=== PATIENT | female | born 1945 | race Caucasian/White ===

== ENCOUNTER → 2016-05-13 | Outpatient (CLI) | payer OTHER ==
[~2016-05-13] MED LIST: ALBU6.7H INH; AMLO10TA4 PO; AMLO5TAB2 PO; BUDE10.2 INH; BUDE10.22 INH; CLON-365 PO; DOCU-30 PO; HYDR-3240 PO; HYDROCODONE PO; LEVO750T26 PO; LOPE2TAB28 PO; OMEP-110 PO; PARO20TA4 PO; PERP4TAB6 PO; PRED5TAB PO; QUET100T PO; SENN1TAB7 PO; TIOT18CA INH; TRAM50TA2 PO
== END | disposition home or self-care (01) ==
LOC: CFH 12:34
PROVIDERS: ATTEND Urology
DX: R10.84 Generalized abdominal pain (principal); M51.37 Other intervertebral disc degeneration, lumbosacral region; Z90.5 Acquired absence of kidney
CPT/HCPCS: 74176

== ENCOUNTER 2016-11-06 18:58 | Inpatient (IN) | payer OTHER ==
[~2016-11-06] VITALS: Ht 167.6 cm; Wt 82.6 kg
[~2016-11-06 18:58] MED LIST changes: +DOCU-131 PO; -DOCU-30 PO
[2016-11-06] MEDS ORDERED: SODIUM CHLORIDE FLUSH 10ML SYR IVF ONE (19:30)
[2016-11-06] MEDS ORDERED: methylPREDNISolone SOD SUCC 125 MG/2 ML IVP ONE (19:30)
[2016-11-06] MEDS ORDERED: SODIUM CHLORIDE 0.9% 1,000ML IVBOLUS ONE (19:30)
[2016-11-06] MEDS ORDERED: methylPREDNISolone SOD SUCC 125 MG/2 ML ONE (19:38)
[2016-11-06 19:43] LABS: HEMATOCRIT 40.8 % (34.6-47.8); HEMOGLOBIN 13.5 g/dL (11.7-16.4); WHITE BLOOD COUNT 9.5 x10^3/uL (3.4-10)
[2016-11-06 19:51] LABS: BLOOD UREA NITROGEN 29 mg/dL (7-18)
[2016-11-06 19:56] LABS: ASPARTATE AMINO TRANSFERASE 17 U/L (15-37)
[2016-11-06 19:58] LABS: IS PT STATUS REG ER OR PRE ER? YES
[2016-11-06] MEDS ORDERED: ALBUTEROL/IPRATROPIUM 2.5MG/0.5MG, 3 ML NPPB ONE (20:00)
[2016-11-06] MEDS ORDERED: CEFTRIAXONE PMX 1GM/50ML 50 ML IV ONE (20:30)
[2016-11-06] MEDS ORDERED: AZITHROMYCIN 500 MG in SODIUM CHLORIDE 0.9% 250 ML IV ONE (21:00)
[2016-11-06] MEDS ORDERED: DIPHENHYDRAMINE 25 MG CAPSULE PO PRN (23:00)
[2016-11-06] MEDS ORDERED: ONDANSETRON 2MG/ML, 2ML IVPush PRN (23:00)
[2016-11-06] MEDS ORDERED: ACETAMINOPHEN 325 MG TABLET PO PRN (23:00)
[2016-11-06] MEDS ORDERED: GUAIFENESIN/DM 200-20MG, 10ML UDC PO PRN (23:00)
[2016-11-06] MEDS: HEPARIN 5,000 UNITS/ML, 1ML SQ SCH (23:23)
[2016-11-07] MEDS: QUETIAPINE 100MG TABLET PO SCH ×3 (00:03→19:39)
[2016-11-07] MEDS: HYDROcodone/APAP 10/325 MG TABLET PO PRN ×3 (00:03→19:48)
[2016-11-07] MEDS: SODIUM CHLORIDE 0.9% 1,000 ML IV SCH ×2 (00:04→08:46)
[2016-11-07 00:07] VITALS: BP 122/71
[2016-11-07 01:00] VITALS: BP 132/76
[2016-11-07] MEDS ORDERED: ALBUTEROL/IPRATROPIUM 2.5MG/0.5MG, 3 ML NPPB PRN (02:00)
[2016-11-07 06:10] LABS: HEMATOCRIT 36.3 % (34.6-47.8); HEMOGLOBIN 12.1 g/dL (11.7-16.4); WHITE BLOOD COUNT 5.4 x10^3/uL (3.4-10)
[2016-11-07 06:26] LABS: BLOOD UREA NITROGEN 24 mg/dL (7-18)
[2016-11-07] MEDS ORDERED: SODIUM PHOSPHATE 20 MMOL in SODIUM CHLORIDE 0.9% 500 ML IV ONE (07:30)
[2016-11-07 08:20] VITALS: BP 120/73
[2016-11-07] MEDS: AMLODIPINE 5 MG TABLET PO SCH (08:45)
[2016-11-07] MEDS: PAROXETINE 20 MG TABLET PO SCH (08:45)
[2016-11-07] MEDS: HEPARIN 5,000 UNITS/ML, 1ML SQ SCH ×2 (08:46→19:39)
[2016-11-07] MEDS ORDERED: QUETIAPINE 100MG TABLET PO SCH (09:00)
[2016-11-07] MEDS: FLUTICASONE/VILANTEROL 200-25MCG/INH INH SCH (09:50)
[2016-11-07 13:15] VITALS: BP 129/72
[2016-11-07 18:45] VITALS: BP 122/73
[2016-11-07] MEDS: CEFTRIAXONE PMX 1GM/50ML 50 ML IV SCH (21:23)
[2016-11-08 01:45] VITALS: BP 109/64
[2016-11-08 06:07] LABS: BLOOD UREA NITROGEN 21 mg/dL (7-18)
[2016-11-08] MEDS: PAROXETINE 20 MG TABLET PO SCH (07:38)
[2016-11-08] MEDS: AMLODIPINE 5 MG TABLET PO SCH (07:38)
[2016-11-08] MEDS: HEPARIN 5,000 UNITS/ML, 1ML SQ SCH ×2 (07:39→20:44)
[2016-11-08] MEDS: FLUTICASONE/VILANTEROL 200-25MCG/INH INH SCH (07:39)
[2016-11-08] MEDS: QUETIAPINE 100MG TABLET PO SCH ×2 (07:39→20:44)
[2016-11-08 07:43] VITALS: BP 121/67
[2016-11-08] MEDS: HYDROcodone/APAP 10/325 MG TABLET PO PRN ×2 (07:44→13:27)
[2016-11-08 13:57] VITALS: BP 121/72
[2016-11-08] MEDS: PHENAZOPYRIDINE 100 MG TABLET PO PRN (17:55)
[2016-11-08] MEDS: GUAIFENESIN 200 MG TABLET PO PRN (17:55)
[2016-11-08 19:26] VITALS: BP 118/54
[2016-11-08] MEDS: CEFTRIAXONE PMX 1GM/50ML 50 ML IV SCH (20:44)
[2016-11-09 02:14] VITALS: BP 115/69
[2016-11-09 06:22] LABS: BLOOD UREA NITROGEN 22 mg/dL (7-18)
[2016-11-09 06:55] VITALS: BP 124/76
[2016-11-09] MEDS: HYDROcodone/APAP 10/325 MG TABLET PO PRN ×2 (08:28→20:57)
[2016-11-09] MEDS: FLUTICASONE/VILANTEROL 200-25MCG/INH INH SCH (08:29)
[2016-11-09] MEDS: AMLODIPINE 5 MG TABLET PO SCH (08:30)
[2016-11-09] MEDS: PAROXETINE 20 MG TABLET PO SCH (08:30)
[2016-11-09] MEDS: GUAIFENESIN 200 MG TABLET PO PRN (08:30)
[2016-11-09] MEDS: QUETIAPINE 100MG TABLET PO SCH ×2 (08:31→20:57)
[2016-11-09] MEDS: HEPARIN 5,000 UNITS/ML, 1ML SQ SCH ×2 (08:31→20:58)
[2016-11-09 14:07] VITALS: BP 125/78
[2016-11-09 18:38] VITALS: BP 108/70
[2016-11-09] MEDS: PHENAZOPYRIDINE 100 MG TABLET PO PRN (20:57)
[2016-11-09] MEDS: CEFTRIAXONE PMX 1GM/50ML 50 ML IV SCH (20:58)
[2016-11-10 01:15] VITALS: BP 113/70
[2016-11-10 08:00] VITALS: BP 163/79
[2016-11-10] MEDS: QUETIAPINE 100MG TABLET PO SCH (09:29)
[2016-11-10] MEDS: PAROXETINE 20 MG TABLET PO SCH (09:29)
[2016-11-10] MEDS: AMLODIPINE 5 MG TABLET PO SCH (09:29)
[2016-11-10] MEDS: FLUTICASONE/VILANTEROL 200-25MCG/INH INH SCH (09:29)
[2016-11-10] MEDS: HEPARIN 5,000 UNITS/ML, 1ML SQ SCH (09:30)
[2016-11-10] MEDS: HYDROcodone/APAP 10/325 MG TABLET PO PRN (12:13)
[2016-11-10 14:15] VITALS: BP 119/79
[2016-11-10] MEDS ORDERED: OMEP-110 PO (14:42)
[2016-11-10] MEDS ORDERED: HYDR-3307 PO (14:42)
[2016-11-10] MEDS ORDERED: FLUT1BLS INH (14:42)
[2016-11-10] MEDS ORDERED: CEFD300C37 PO (14:42)
== END 2016-11-10 16:55 | disposition home or self-care (01) | DRG 682 ==
LOC: ED 20:53 → EDIP 21:00 → 3NE 22:09
PROVIDERS: ADMIT Hospitalist; ATTEND Family Medicine
DX: N17.9 Acute kidney failure, unspecified (principal); J96.21 Acute and chronic respiratory failure with hypoxia; J18.9 Pneumonia, unspecified organism; J44.0 Chronic obstructive pulmonary disease with (acute) lower respiratory infection; J44.1 Chronic obstructive pulmonary disease with (acute) exacerbation; N12 Tubulo-interstitial nephritis, not specified as acute or chronic; I11.9 Hypertensive heart disease without heart failure; B96.20 Unspecified Escherichia coli [E. coli] as the cause of diseases classified elsewhere; F12.90 Cannabis use, unspecified, uncomplicated; F17.210 Nicotine dependence, cigarettes, uncomplicated; K21.9 Gastro-esophageal reflux disease without esophagitis; F41.9 Anxiety disorder, unspecified; F32.9 Major depressive disorder, single episode, unspecified; Z85.51 Personal history of malignant neoplasm of bladder; Z99.81 Dependence on supplemental oxygen; Z90.89 Acquired absence of other organs; Z90.710 Acquired absence of both cervix and uterus
CPT/HCPCS: 36415; 71010; 80048; 80053; 81001; 82040; 83735; 83880; 84100; 84484; 85025; 87040; 87077; 87086; 87186; 93005; 94640; 96361; 96374; J0456; J0696; J1644; J7620; J2930; J7030; J7040; J7050

== ENCOUNTER → 2016-11-22 | Outpatient (CLI) | payer OTHER ==
[~2016-11-22] MED LIST changes: +CEFD300C37 PO; +FLUT1BLS INH; +HYDR-3307 PO; +HYDR50CA PO
== END | disposition home or self-care (01) ==
LOC: CFH 08:43
PROVIDERS: ATTEND Physician Assistant
DX: K80.20 Calculus of gallbladder without cholecystitis without obstruction (principal); B18.2 Chronic viral hepatitis C
CPT/HCPCS: 76700

== ENCOUNTER 2016-11-27 18:55 | Inpatient (IN) | payer OTHER ==
[~2016-11-27] VITALS: Ht 157.5 cm; Wt 81.3 kg
[~2016-11-27 18:55] MED LIST changes: -HYDR50CA PO
[2016-11-27] MEDS ORDERED: MORPHINE SULFATE 4 MG/ML, 1ML ONE ×2 (19:26→20:18)
[2016-11-27] MEDS ORDERED: ONDANSETRON 2MG/ML, 2ML ONE (19:27)
[2016-11-27 19:30] LABS: HEMATOCRIT 39.7 % (34.6-47.8); HEMOGLOBIN 12.7 g/dL (11.7-16.4); WHITE BLOOD COUNT 8.3 x10^3/uL (3.4-10)
[2016-11-27] MEDS ORDERED: SODIUM CHLORIDE FLUSH 10ML SYR IVF ONE (19:30)
[2016-11-27] MEDS ORDERED: ONDANSETRON 2MG/ML, 2ML IVPush ONE (19:30)
[2016-11-27] MEDS ORDERED: SODIUM CHLORIDE 0.9% 1,000ML IVBOLUS ONE (19:30)
[2016-11-27] MEDS: MORPHINE SULFATE 4 MG/ML, 1ML IVPush PRN ×2 (19:37→20:25)
[2016-11-27 19:41] LABS: ASPARTATE AMINO TRANSFERASE 24 U/L (15-37); BLOOD UREA NITROGEN 15 mg/dL (7-18)
[2016-11-27 19:52] LABS: IS PT STATUS REG ER OR PRE ER? YES
[2016-11-27] MEDS ORDERED: OMNIPAQUE 350 MG/ML, 100ML BOTTLE ONE (21:04)
[2016-11-27] MEDS ORDERED: HYDR50CA PO (21:57)
[2016-11-27] MEDS ORDERED: FLUT1BLS INH (21:57)
[2016-11-27] MEDS ORDERED: CEFOTETAN PMX 1GM/50ML 50 ML IV ONE (22:30)
[2016-11-27] MEDS ORDERED: ONDANSETRON 2MG/ML, 2ML IVPush PRN (22:30)
[2016-11-27] MEDS ORDERED: ENOXAPARIN 40 MG/0.4 ML SQ SCH (22:30)
[2016-11-27] MEDS ORDERED: hydrALAzine 20 MG/ML, 1ML IVPush PRN (22:30)
[2016-11-27] MEDS ORDERED: ACETAMINOPHEN 325 MG TABLET PO PRN (22:30)
[2016-11-27] MEDS: CEFOTETAN PMX 1GM/50ML 50 ML IV SCH (22:30)
[2016-11-27] MEDS ORDERED: CEFOTETAN PMX 1GM/50ML 50 ML ONE (22:38)
[2016-11-27] MEDS ORDERED: ENOXAPARIN 30 MG/0.3 ML SQ SCH (23:46)
[2016-11-28] MEDS: morphine SULFATE 10 MG/ML, 1ML IVPush PRN ×3 (01:00→21:46)
[2016-11-28] MEDS: LACTATED RINGERS 1,000 ML IV SCH ×2 (01:00→14:20)
[2016-11-28 02:03] VITALS: BP 119/72
[2016-11-28] MEDS: HYDROcodone/APAP 10/325 MG TABLET PO PRN ×3 (02:18→20:07)
[2016-11-28] MEDS ORDERED: ALBUTEROL/IPRATROPIUM 2.5MG/0.5MG, 3 ML NPPB PRN ×2 (03:00→11:30)
[2016-11-28 05:30] LABS: HEMATOCRIT 33.8 % (34.6-47.8); HEMOGLOBIN 11.3 g/dL (11.7-16.4); WHITE BLOOD COUNT 6.3 x10^3/uL (3.4-10)
[2016-11-28 05:58] LABS: ASPARTATE AMINO TRANSFERASE 18 U/L (15-37); BLOOD UREA NITROGEN 12 mg/dL (7-18)
[2016-11-28 07:02] VITALS: BP 104/66
[2016-11-28] MEDS: FLUTICASONE/VILANTEROL 200-25MCG/INH INH SCH (09:00)
[2016-11-28] MEDS: AMLODIPINE 5 MG TABLET PO SCH (09:00)
[2016-11-28] MEDS: OMEPRAZOLE 20 MG CAPSULE.DR PO SCH (09:00)
[2016-11-28] MEDS: QUETIAPINE 100MG TABLET PO SCH ×2 (09:00→22:38)
[2016-11-28] MEDS: PAROXETINE 20 MG TABLET PO SCH (09:00)
[2016-11-28] MEDS ORDERED: BUPIVACAINE/PF 0.5% ONE (09:07)
[2016-11-28] MEDS ORDERED: EPINEPHRINE 1 MG/ML, 1ML ONE (09:07)
[2016-11-28] MEDS ORDERED: ONDANSETRON 2MG/ML, 2ML ONE (09:18)
[2016-11-28] MEDS ORDERED: DEXAMETHASONE 4 MG/ML, 1ML ONE (09:18)
[2016-11-28] MEDS ORDERED: PROPOFOL 10 MG/ML, 20ML ONE ×2 (09:18)
[2016-11-28] MEDS ORDERED: SUCCINYLCHOLINE 20 MG/ML, 10ML ONE (09:19)
[2016-11-28] MEDS ORDERED: FENTANYL PF 100 MCG/2ML ONE ×3 (09:19→11:04)
[2016-11-28] MEDS ORDERED: MIDAZOLAM 1 MG/ML, 2ML ONE (09:24)
[2016-11-28] MEDS ORDERED: LIDOCAINE GEL 2%, 5ML ONE (09:26)
[2016-11-28] MEDS ORDERED: ROCURONIUM 10 MG/ML ONE (10:01)
[2016-11-28] MEDS ORDERED: OXYcodone 5 MG/5 ML ORAL.SOL UDC ONE (11:05)
[2016-11-28] MEDS: FENTANYL PF 100 MCG/2ML IV PRN ×2 (11:08→11:35)
[2016-11-28] MEDS ORDERED: OXYcodone 5 MG/5 ML ORAL.SOL UDC PO PRN (11:30)
[2016-11-28] MEDS ORDERED: MIDAZOLAM 1 MG/ML, 2ML IV PRN (11:30)
[2016-11-28] MEDS ORDERED: ONDANSETRON 2MG/ML, 2ML IVPush PRN (11:30)
[2016-11-28] MEDS ORDERED: PROMETHAZINE 25 MG/ML, 1ML IV PRN (11:30)
[2016-11-28] MEDS ORDERED: HYDROmorphone 1 MG/ML, 1ML ONE (11:48)
[2016-11-28] MEDS: HYDROmorphone 1 MG/ML, 1ML IV PRN ×3 (11:50→12:15)
[2016-11-28] MEDS: CEFOTETAN PMX 1GM/50ML 50 ML IV SCH (13:50)
[2016-11-28 20:32] VITALS: BP 116/64
[2016-11-28] MEDS ORDERED: ENOXAPARIN 40 MG/0.4 ML SQ SCH (23:00)
[2016-11-29] MEDS: CEFOTETAN PMX 1GM/50ML 50 ML IV SCH ×2 (01:03→13:03)
[2016-11-29] MEDS: LACTATED RINGERS 1,000 ML IV SCH (01:04)
[2016-11-29 01:05] VITALS: BP 111/50
[2016-11-29] MEDS: morphine SULFATE 10 MG/ML, 1ML IVPush PRN ×3 (03:53→20:33)
[2016-11-29 04:32] LABS: HEMOGLOBIN 11.3 g/dL (11.7-16.4); WHITE BLOOD COUNT 9.8 x10^3/uL (3.4-10)
[2016-11-29 04:39] LABS: BLOOD UREA NITROGEN 13 mg/dL (7-18)
[2016-11-29] MEDS: HYDROcodone/APAP 10/325 MG TABLET PO PRN ×3 (06:08→19:22)
[2016-11-29 06:49] VITALS: BP 115/62
[2016-11-29] MEDS: QUETIAPINE 100MG TABLET PO SCH ×2 (08:11→19:23)
[2016-11-29] MEDS: PAROXETINE 20 MG TABLET PO SCH (08:11)
[2016-11-29] MEDS: OMEPRAZOLE 20 MG CAPSULE.DR PO SCH (08:11)
[2016-11-29] MEDS: AMLODIPINE 5 MG TABLET PO SCH (08:12)
[2016-11-29] MEDS: FLUTICASONE/VILANTEROL 200-25MCG/INH INH SCH (09:00)
[2016-11-29] MEDS ORDERED: MORPHINE SULFATE 4 MG/ML, 1ML ONE (10:07)
[2016-11-29 12:27] VITALS: BP 125/68
[2016-11-29 14:12] LABS: ASPARTATE AMINO TRANSFERASE 46 U/L (15-37)
[2016-11-29 18:44] VITALS: BP 131/65
[2016-11-29] MEDS: ENOXAPARIN 30 MG/0.3 ML SQ SCH (22:00)
[2016-11-30] MEDS: morphine SULFATE 10 MG/ML, 1ML IVPush PRN ×4 (00:27→20:08)
[2016-11-30 00:35] VITALS: BP 109/62
[2016-11-30] MEDS: HYDROcodone/APAP 10/325 MG TABLET PO PRN ×3 (02:43→17:37)
[2016-11-30 05:20] LABS: HEMATOCRIT 31.7 % (34.6-47.8); HEMOGLOBIN 10.4 g/dL (11.7-16.4); WHITE BLOOD COUNT 7.1 x10^3/uL (3.4-10)
[2016-11-30 05:21] LABS: BLOOD UREA NITROGEN 10 mg/dL (7-18)
[2016-11-30 05:24] LABS: ASPARTATE AMINO TRANSFERASE 40 U/L (15-37)
[2016-11-30 06:52] VITALS: BP 127/79
[2016-11-30] MEDS: PAROXETINE 20 MG TABLET PO SCH (08:33)
[2016-11-30] MEDS: OMEPRAZOLE 20 MG CAPSULE.DR PO SCH (08:33)
[2016-11-30] MEDS: AMLODIPINE 5 MG TABLET PO SCH (08:33)
[2016-11-30] MEDS: QUETIAPINE 100MG TABLET PO SCH ×2 (08:34→19:58)
[2016-11-30] MEDS ORDERED: PNEUMOCOCCAL 23 VACCINE IM-VACC ONE (10:00)
[2016-11-30] MEDS ORDERED: FLU VACC QS2017-18 (36MOS+) UP/PF 0.5 ML IM-VACC ONE (10:00)
[2016-11-30] MEDS: FLUTICASONE/VILANTEROL 200-25MCG/INH INH SCH (11:35)
[2016-11-30] MEDS: NICOTINE 7 MG/24 HR PATCH.TD24 TD SCH (11:36)
[2016-11-30 12:29] VITALS: BP 109/56
[2016-11-30] MEDS ORDERED: SODIUM CHLORIDE 0.9% 1,000 ML IV SCH (17:00)
[2016-11-30 19:00] VITALS: BP 146/77
[2016-11-30] MEDS: ENOXAPARIN 30 MG/0.3 ML SQ SCH (19:58)
[2016-12-01 02:41] VITALS: BP 132/76
[2016-12-01] MEDS: HYDROcodone/APAP 10/325 MG TABLET PO PRN ×2 (05:27→12:49)
[2016-12-01 05:42] LABS: BLOOD UREA NITROGEN 9 mg/dL (7-18)
[2016-12-01 06:41] VITALS: BP 116/71
[2016-12-01] MEDS: FLUTICASONE/VILANTEROL 200-25MCG/INH INH SCH (08:31)
[2016-12-01] MEDS: PAROXETINE 20 MG TABLET PO SCH (08:32)
[2016-12-01] MEDS: OMEPRAZOLE 20 MG CAPSULE.DR PO SCH (08:33)
[2016-12-01] MEDS: morphine SULFATE 10 MG/ML, 1ML IVPush PRN (08:34)
[2016-12-01] MEDS: QUETIAPINE 100MG TABLET PO SCH (08:34)
[2016-12-01] MEDS: AMLODIPINE 5 MG TABLET PO SCH (08:42)
[2016-12-01] MEDS: NICOTINE 7 MG/24 HR PATCH.TD24 TD SCH (10:22)
[2016-12-01 13:28] VITALS: BP 100/65
== END 2016-12-01 18:00 | disposition home or self-care (01) | DRG 418 ==
LOC: ED 20:01 → EDIP 22:11 → SUATTDRO 22:28 → 3NW 23:42
PROVIDERS: ADMIT Hospitalist; ATTEND Hospitalist
PROC: 0FT44ZZ Resection of Gallbladder, Percutaneous Endoscopic Approach (ICD-10-PCS; principal; 2016-11-28 10:30)
DX: K80.10 Calculus of gallbladder with chronic cholecystitis without obstruction (principal); N17.9 Acute kidney failure, unspecified; J44.9 Chronic obstructive pulmonary disease, unspecified; K74.60 Unspecified cirrhosis of liver; R16.0 Hepatomegaly, not elsewhere classified; N39.0 Urinary tract infection, site not specified; K59.00 Constipation, unspecified; Z85.51 Personal history of malignant neoplasm of bladder; Z90.49 Acquired absence of other specified parts of digestive tract; Z90.5 Acquired absence of kidney; I12.9 Hypertensive chronic kidney disease with stage 1 through stage 4 chronic kidney disease, or unspecified chronic kidney disease; N18.9 Chronic kidney disease, unspecified; B19.20 Unspecified viral hepatitis C without hepatic coma
CPT/HCPCS: 36415; 71020; 74000; 74177; 76700; 80048; 80053; 80076; 81003; 83690; 83735; 84100; 84484; 85025; 85610; 88304; 90686; 90732; 93005; 94640; 96361; 96374; 96375; 96376; J0171; J1100; J1170; J1650; J2250; J2405; J2704; J3010; J3490; J7620; Q9967; J0330; J2270; J7030; J7120; S0074

== ENCOUNTER 2017-01-30 10:37 | Emergency (ER) | payer OTHER ==
[~2017-01-30] VITALS: Ht 157.5 cm; Wt 74.0 kg
[~2017-01-30 10:37] MED LIST changes: +HYDR50CA PO
[2017-01-30] MEDS ORDERED: DOCUSATE 100 MG CAPSULE ONE (11:06)
[2017-01-30 11:10] VITALS: BP 151/86
[2017-01-30] MEDS ORDERED: DOCUSATE 50 MG/5 ML, 10ML UDC PO ONE (11:30)
== END 2017-01-30 11:53 | disposition home or self-care (01) ==
LOC: ED 11:40
DX: K59.00 Constipation, unspecified (principal); J44.9 Chronic obstructive pulmonary disease, unspecified; I10 Essential (primary) hypertension; K21.9 Gastro-esophageal reflux disease without esophagitis; Z85.51 Personal history of malignant neoplasm of bladder; Z90.49 Acquired absence of other specified parts of digestive tract
CPT/HCPCS: 99283

== ENCOUNTER 2017-01-31 15:18 | Inpatient (IN) | payer OTHER ==
[~2017-01-31] VITALS: Ht 157.5 cm; Wt 82.2 kg
[2017-01-31] MEDS ORDERED: ONDANSETRON 2MG/ML, 2ML ONE (15:53)
[2017-01-31] MEDS ORDERED: HYDROmorphone 2 MG/ML, 1ML ONE (15:53)
[2017-01-31] MEDS ORDERED: METHYLNALTREXONE 12 MG/0.6 ML SQ ONE (16:00)
[2017-01-31] MEDS ORDERED: SODIUM CHLORIDE FLUSH 10ML SYR IVF ONE (16:00)
[2017-01-31] MEDS ORDERED: ONDANSETRON 2MG/ML, 2ML IVPush ONE (16:00)
[2017-01-31] MEDS ORDERED: HYDROmorphone 2 MG/ML, 1ML IVPush ONE (16:00)
[2017-01-31] MEDS ORDERED: PINK LADY ENEMA 1,000 ML PR ONE (16:00)
[2017-01-31] MEDS ORDERED: SODIUM CHLORIDE 0.9% 1,000ML IVBOLUS ONE (16:00)
[2017-01-31 16:33] LABS: HEMATOCRIT 41.7 % (34.6-47.8); HEMOGLOBIN 13.8 g/dL (11.7-16.4); WHITE BLOOD COUNT 18.8 x10^3/uL (3.4-10)
[2017-01-31 16:42] LABS: ASPARTATE AMINO TRANSFERASE 20 U/L (15-37); BLOOD UREA NITROGEN 26 mg/dL (7-18)
[2017-01-31] MEDS ORDERED: OMNIPAQUE 350 MG/ML, 100ML BOTTLE ONE (18:35)
[2017-01-31] MEDS ORDERED: CEFTRIAXONE PMX 1GM/50ML 50 ML IV ONE (19:00)
[2017-01-31] MEDS ORDERED: METRONIDAZOLE PMX 500MG/100ML 100 ML IV ONE (19:00)
[2017-01-31] MEDS ORDERED: METRONIDAZOLE PMX 500MG/100ML 100 ML ONE (19:05)
[2017-01-31] MEDS ORDERED: CEFTRIAXONE PMX 1GM/50ML 50 ML ONE (19:05)
[2017-01-31] MEDS ORDERED: SODIUM CHLORIDE 0.9%, 500ML IVBOLUS ONE (19:30)
[2017-01-31] MEDS: SODIUM CHLORIDE 0.9% 1,000 ML IV SCH (20:18)
[2017-01-31] MEDS ORDERED: ONDANSETRON ODT 4 MG PO PRN (20:30)
[2017-01-31] MEDS ORDERED: SENNA/DOCUSATE TABLET PO SCH (20:30)
[2017-01-31] MEDS ORDERED: ACETAMINOPHEN 325 MG TABLET PO PRN (20:30)
[2017-01-31] MEDS ORDERED: POLYETHYLENE GLYCOL 17 GM PACKET PO SCH (20:30)
[2017-01-31] MEDS ORDERED: DOCUSATE 100 MG CAPSULE PO SCH (21:00)
[2017-01-31] MEDS ORDERED: PIPERACILLIN/TAZO/PMX 2.25GM 50 ML IV SCH (21:00)
[2017-01-31] MEDS ORDERED: PIPERACILLIN/TAZO 2.25 GM in SODIUM CHLORIDE 0.9% 50 ML IV SCH (21:00)
[2017-01-31] MEDS ORDERED: PHARMACY MAY ADJ FOR RENAL FX MC PRN (21:00)
[2017-01-31] MEDS: QUETIAPINE 100MG TABLET PO SCH (21:50)
[2017-01-31] MEDS: hydrOXyzine 50MG TABLET PO SCH (21:50)
[2017-01-31] MEDS: HEPARIN 5,000 UNITS/ML, 1ML SQ SCH (21:51)
[2017-01-31] MEDS: PIPERACILLIN/TAZO/PMX 2.25GM 50 ML IV SCH (23:37)
[2017-02-01 00:42] VITALS: BP 132/64
[2017-02-01] MEDS ORDERED: LORazepam 2 MG/ML, 1ML IVPush ONE (03:00)
[2017-02-01] MEDS ORDERED: MINERAL OIL LIGHT PO STA (04:30)
[2017-02-01] MEDS: HEPARIN 5,000 UNITS/ML, 1ML SQ SCH ×4 (04:30→21:29)
[2017-02-01] MEDS ORDERED: MORPHINE SULFATE 4 MG/ML, 1ML IVPush PRN (05:00)
[2017-02-01 05:35] LABS: HEMATOCRIT 35.2 % (34.6-47.8); HEMOGLOBIN 11.8 g/dL (11.7-16.4); WHITE BLOOD COUNT 14.7 x10^3/uL (3.4-10)
[2017-02-01 05:41] LABS: BLOOD UREA NITROGEN 16 mg/dL (7-18)
[2017-02-01 05:52] LABS: ASPARTATE AMINO TRANSFERASE 19 U/L (15-37)
[2017-02-01] MEDS: PIPERACILLIN/TAZO/PMX 2.25GM 50 ML IV SCH ×3 (06:09→17:57)
[2017-02-01 06:48] VITALS: BP 136/72
[2017-02-01] MEDS ORDERED: LORazepam 2 MG/ML, 1ML IVPush PRN (08:00)
[2017-02-01] MEDS ORDERED: HYDROmorphone 1 MG/ML, 1ML IM PRN (08:00)
[2017-02-01] MEDS: SODIUM CHLORIDE 0.9% 1,000 ML IV SCH (08:00)
[2017-02-01] MEDS ORDERED: POTASSIUM PHOS 4.4 MEQ/ML IV SCH (08:00)
[2017-02-01] MEDS ORDERED: HYDROmorphone 2 MG/ML, 1ML ONE ×3 (08:21→21:24)
[2017-02-01] MEDS: PAROXETINE 20 MG TABLET PO SCH (08:32)
[2017-02-01] MEDS: AMLODIPINE 5 MG TABLET PO SCH (08:32)
[2017-02-01] MEDS: hydrOXyzine 50MG TABLET PO SCH ×3 (08:32→21:21)
[2017-02-01] MEDS: QUETIAPINE 100MG TABLET PO SCH ×2 (08:32→21:22)
[2017-02-01] MEDS: HYDROmorphone 1 MG/ML, 1ML IVPush PRN ×3 (08:37→21:29)
[2017-02-01] MEDS: PINK LADY ENEMA 1,000 ML PR SCH (08:38)
[2017-02-01] MEDS: D5%-0.9% NACL 1,000 ML IV SCH ×2 (08:45→17:22)
[2017-02-01] MEDS: FLUTICASONE/VILANTEROL 200-25MCG/INH INH SCH (11:36)
[2017-02-01 13:20] VITALS: BP 137/79
[2017-02-01] MEDS: LORazepam 2 MG/ML, 1ML IVPush PRN ×2 (17:57→22:32)
[2017-02-01 18:45] VITALS: BP 135/72
[2017-02-01] MEDS: ONDANSETRON 2MG/ML, 2ML IVPush PRN (21:35)
[2017-02-02] MEDS: PIPERACILLIN/TAZO/PMX 2.25GM 50 ML IV SCH ×4 (00:45→17:44)
[2017-02-02] MEDS: LORazepam 2 MG/ML, 1ML IVPush PRN ×4 (02:33→17:53)
[2017-02-02] MEDS: D5%-0.9% NACL 1,000 ML IV SCH ×3 (02:39→17:32)
[2017-02-02] MEDS ORDERED: HYDROmorphone 2 MG/ML, 1ML ONE ×2 (03:35→20:43)
[2017-02-02] MEDS: ONDANSETRON 2MG/ML, 2ML IVPush PRN ×3 (03:39→20:58)
[2017-02-02] MEDS: HYDROmorphone 1 MG/ML, 1ML IVPush PRN ×4 (03:40→20:57)
[2017-02-02 03:45] VITALS: BP 145/71
[2017-02-02 05:56] LABS: HEMATOCRIT 33.3 % (34.6-47.8); HEMOGLOBIN 11.2 g/dL (11.7-16.4); WHITE BLOOD COUNT 7.9 x10^3/uL (3.4-10)
[2017-02-02] MEDS: HEPARIN 5,000 UNITS/ML, 1ML SQ SCH ×3 (06:08→20:56)
[2017-02-02 06:23] LABS: ASPARTATE AMINO TRANSFERASE 64 U/L (15-37); BLOOD UREA NITROGEN 10 mg/dL (7-18)
[2017-02-02 07:39] VITALS: BP 144/81
[2017-02-02] MEDS: hydrOXyzine 50MG TABLET PO SCH ×3 (07:50→20:57)
[2017-02-02] MEDS: PINK LADY ENEMA 1,000 ML PR SCH (07:51)
[2017-02-02] MEDS: QUETIAPINE 100MG TABLET PO SCH ×2 (07:51→20:56)
[2017-02-02] MEDS: PAROXETINE 20 MG TABLET PO SCH (07:51)
[2017-02-02] MEDS: AMLODIPINE 5 MG TABLET PO SCH (07:51)
[2017-02-02] MEDS: FLUTICASONE/VILANTEROL 200-25MCG/INH INH SCH (08:19)
[2017-02-02] MEDS ORDERED: POTASSIUM PHOS 4.4 MEQ/ML IV SCH (11:00)
[2017-02-02] MEDS ORDERED: POTASSIUM PHOSPHATE 44 MEQ in SODIUM CHLORIDE 0.9% 500 ML IV ONE (11:00)
[2017-02-02] MEDS: NEUTRA PHOS K 250 MG TABLET PO SCH ×3 (11:31→19:32)
[2017-02-02 15:02] VITALS: BP_SYST 110; BP_SYST 157; BP_DIAS 68; BP_DIAS 74
[2017-02-02] MEDS ORDERED: HYDROmorphone 1 MG/ML, 1ML IVPush ONE (15:30)
[2017-02-02 18:45] VITALS: BP 140/61
[2017-02-03] MEDS: PIPERACILLIN/TAZO/PMX 2.25GM 50 ML IV SCH ×5 (00:04→23:59)
[2017-02-03] MEDS: LORazepam 2 MG/ML, 1ML IVPush PRN ×4 (00:04→20:57)
[2017-02-03 00:23] VITALS: BP 145/74
[2017-02-03] MEDS ORDERED: HYDROmorphone 2 MG/ML, 1ML ONE (02:41)
[2017-02-03] MEDS: HYDROmorphone 1 MG/ML, 1ML IVPush PRN ×2 (02:44→12:09)
[2017-02-03] MEDS: ONDANSETRON 2MG/ML, 2ML IVPush PRN ×2 (03:32→12:09)
[2017-02-03] MEDS: HEPARIN 5,000 UNITS/ML, 1ML SQ SCH ×3 (05:14→20:57)
[2017-02-03 06:14] LABS: ASPARTATE AMINO TRANSFERASE 52 U/L (15-37); BLOOD UREA NITROGEN 11 mg/dL (7-18)
[2017-02-03 06:16] LABS: HEMATOCRIT 33.5 % (34.6-47.8); HEMOGLOBIN 11.1 g/dL (11.7-16.4); WHITE BLOOD COUNT 5.6 x10^3/uL (3.4-10)
[2017-02-03 07:50] VITALS: BP 147/74
[2017-02-03] MEDS: PINK LADY ENEMA 1,000 ML PR SCH (10:12)
[2017-02-03] MEDS: FLUTICASONE/VILANTEROL 200-25MCG/INH INH SCH (10:19)
[2017-02-03] MEDS ORDERED: PINK LADY ENEMA 1,000 ML PR ONE (10:30)
[2017-02-03] MEDS: AMLODIPINE 5 MG TABLET PO SCH (11:47)
[2017-02-03] MEDS: NEUTRA PHOS K 250 MG TABLET PO SCH ×3 (11:47→20:56)
[2017-02-03] MEDS: D5%-0.9% NACL 1,000 ML IV SCH ×2 (11:47→20:56)
[2017-02-03] MEDS: hydrOXyzine 50MG TABLET PO SCH ×3 (11:47→20:57)
[2017-02-03] MEDS: PAROXETINE 20 MG TABLET PO SCH (11:48)
[2017-02-03] MEDS: QUETIAPINE 100MG TABLET PO SCH ×2 (11:58→20:56)
[2017-02-03 13:30] VITALS: BP 126/43
[2017-02-03 18:45] VITALS: BP 146/80
[2017-02-03 19:19] VITALS: BP 158/73
[2017-02-03] MEDS: POLYETHYLENE GLYCOL 17 GM PACKET PO SCH (20:57)
[2017-02-04 02:06] VITALS: BP 147/73
[2017-02-04] MEDS: HEPARIN 5,000 UNITS/ML, 1ML SQ SCH ×3 (05:15→21:00)
[2017-02-04] MEDS: D5%-0.9% NACL 1,000 ML IV SCH (05:16)
[2017-02-04] MEDS: PIPERACILLIN/TAZO/PMX 2.25GM 50 ML IV SCH ×3 (05:16→18:04)
[2017-02-04 07:39] VITALS: BP 144/77
[2017-02-04] MEDS: FLUTICASONE/VILANTEROL 200-25MCG/INH INH SCH (08:40)
[2017-02-04] MEDS: AMLODIPINE 5 MG TABLET PO SCH (08:41)
[2017-02-04] MEDS: POLYETHYLENE GLYCOL 17 GM PACKET PO SCH ×2 (08:41→21:01)
[2017-02-04] MEDS: NEUTRA PHOS K 250 MG TABLET PO SCH ×3 (08:41→21:00)
[2017-02-04] MEDS: PAROXETINE 20 MG TABLET PO SCH (08:41)
[2017-02-04] MEDS: hydrOXyzine 50MG TABLET PO SCH ×3 (08:41→21:00)
[2017-02-04] MEDS: QUETIAPINE 100MG TABLET PO SCH ×2 (08:42→21:01)
[2017-02-04] MEDS: PINK LADY ENEMA 1,000 ML PR SCH (08:58)
[2017-02-04] MEDS ORDERED: HYDROmorphone 2 MG/ML, 1ML ONE ×2 (09:00→14:46)
[2017-02-04] MEDS: HYDROmorphone 1 MG/ML, 1ML IVPush PRN ×3 (09:05→21:04)
[2017-02-04 13:04] VITALS: BP 151/85
[2017-02-04 19:33] VITALS: BP 135/74
[2017-02-05] MEDS: PIPERACILLIN/TAZO/PMX 2.25GM 50 ML IV SCH ×3 (00:53→12:26)
[2017-02-05 02:14] VITALS: BP 147/81
[2017-02-05] MEDS ORDERED: HYDROmorphone 2 MG/ML, 1ML ONE ×2 (03:14→09:21)
[2017-02-05] MEDS: HYDROmorphone 1 MG/ML, 1ML IVPush PRN ×2 (03:20→09:24)
[2017-02-05 04:57] LABS: HEMATOCRIT 38.3 % (34.6-47.8); HEMOGLOBIN 12.7 g/dL (11.7-16.4); WHITE BLOOD COUNT 7.6 x10^3/uL (3.4-10)
[2017-02-05] MEDS: HEPARIN 5,000 UNITS/ML, 1ML SQ SCH ×3 (05:42→20:31)
[2017-02-05 07:41] VITALS: BP 147/71
[2017-02-05] MEDS: PAROXETINE 20 MG TABLET PO SCH (09:26)
[2017-02-05] MEDS: FLUTICASONE/VILANTEROL 200-25MCG/INH INH SCH (09:26)
[2017-02-05] MEDS: QUETIAPINE 100MG TABLET PO SCH ×2 (09:27→20:31)
[2017-02-05] MEDS: hydrOXyzine 50MG TABLET PO SCH ×3 (09:27→20:32)
[2017-02-05] MEDS: NEUTRA PHOS K 250 MG TABLET PO SCH ×3 (09:27→20:32)
[2017-02-05] MEDS: AMLODIPINE 5 MG TABLET PO SCH (09:27)
[2017-02-05] MEDS: POLYETHYLENE GLYCOL 17 GM PACKET PO SCH ×2 (09:27→20:31)
[2017-02-05] MEDS: ONDANSETRON 2MG/ML, 2ML IVPush PRN (09:46)
[2017-02-05 12:40] VITALS: BP 146/77
[2017-02-05] MEDS: LORazepam 2 MG/ML, 1ML IVPush PRN ×2 (13:52→17:53)
[2017-02-05] MEDS ORDERED: MAGNESIUM CITRATE 300ML ORAL SOL PO ONE (14:30)
[2017-02-05] MEDS: CEFTRIAXONE PMX 1GM/50ML 50 ML IV SCH (14:54)
[2017-02-05] MEDS: MORPHINE SULFATE 4 MG/ML, 1ML IVPush PRN ×2 (15:46→19:12)
[2017-02-05] MEDS: METRONIDAZOLE PMX 500MG/100ML 100 ML IV SCH (15:49)
[2017-02-05 19:30] VITALS: BP 159/84
[2017-02-05] MEDS: ZOLPIDEM 5MG TABLET PO PRN (20:32)
[2017-02-06] MEDS: METRONIDAZOLE PMX 500MG/100ML 100 ML IV SCH ×4 (00:02→23:47)
[2017-02-06 02:16] VITALS: BP 145/80
[2017-02-06] MEDS: MORPHINE SULFATE 4 MG/ML, 1ML IVPush PRN ×7 (02:28→21:28)
[2017-02-06] MEDS: HEPARIN 5,000 UNITS/ML, 1ML SQ SCH ×3 (05:00→21:28)
[2017-02-06] MEDS: ONDANSETRON 2MG/ML, 2ML IVPush PRN ×2 (05:14→19:41)
[2017-02-06 07:52] VITALS: BP 150/84
[2017-02-06] MEDS: POLYETHYLENE GLYCOL 17 GM PACKET PO SCH ×2 (08:22→21:27)
[2017-02-06] MEDS: PAROXETINE 20 MG TABLET PO SCH (08:25)
[2017-02-06] MEDS: NEUTRA PHOS K 250 MG TABLET PO SCH ×3 (08:25→21:28)
[2017-02-06] MEDS: AMLODIPINE 5 MG TABLET PO SCH (08:25)
[2017-02-06] MEDS: QUETIAPINE 100MG TABLET PO SCH ×2 (08:25→21:28)
[2017-02-06] MEDS: hydrOXyzine 50MG TABLET PO SCH ×3 (08:25→21:27)
[2017-02-06] MEDS: FLUTICASONE/VILANTEROL 200-25MCG/INH INH SCH (09:30)
[2017-02-06] MEDS: LORazepam 2 MG/ML, 1ML IVPush PRN ×2 (10:44→16:28)
[2017-02-06] MEDS: SIMETHICONE 125 MG CHEW TAB PO SCH ×3 (11:30→21:28)
[2017-02-06 12:58] VITALS: BP 150/67
[2017-02-06] MEDS ORDERED: morphine SULFATE 10 MG/ML, 1ML ONE (14:37)
[2017-02-06] MEDS: CEFTRIAXONE PMX 1GM/50ML 50 ML IV SCH (14:41)
[2017-02-06 19:32] VITALS: BP 135/81
[2017-02-06] MEDS: ZOLPIDEM 5MG TABLET PO PRN (23:47)
[2017-02-07 02:14] VITALS: BP 147/71
[2017-02-07] MEDS: LORazepam 2 MG/ML, 1ML IVPush PRN (02:52)
[2017-02-07] MEDS: HEPARIN 5,000 UNITS/ML, 1ML SQ SCH ×2 (05:20→13:00)
[2017-02-07] MEDS: MORPHINE SULFATE 4 MG/ML, 1ML IVPush PRN (05:21)
[2017-02-07 06:54] VITALS: BP 131/75
[2017-02-07] MEDS: SIMETHICONE 125 MG CHEW TAB PO SCH ×3 (07:00→15:52)
[2017-02-07] MEDS: FLUTICASONE/VILANTEROL 200-25MCG/INH INH SCH (09:00)
[2017-02-07] MEDS: POLYETHYLENE GLYCOL 17 GM PACKET PO SCH (09:01)
[2017-02-07] MEDS: METRONIDAZOLE PMX 500MG/100ML 100 ML IV SCH ×2 (09:10→15:50)
[2017-02-07] MEDS: AMLODIPINE 5 MG TABLET PO SCH (09:11)
[2017-02-07] MEDS: PAROXETINE 20 MG TABLET PO SCH (09:11)
[2017-02-07] MEDS: QUETIAPINE 100MG TABLET PO SCH (09:11)
[2017-02-07] MEDS: hydrOXyzine 50MG TABLET PO SCH ×2 (09:11→15:50)
[2017-02-07] MEDS: NEUTRA PHOS K 250 MG TABLET PO SCH ×2 (09:11→15:52)
[2017-02-07 12:24] VITALS: BP 165/80
[2017-02-07] MEDS: CEFTRIAXONE PMX 1GM/50ML 50 ML IV SCH (14:11)
== END 2017-02-07 18:26 | disposition home or self-care (01) | DRG 871 ==
LOC: ED 17:29 → EDIP 19:02 → 3NE 19:50
PROVIDERS: ADMIT Surgery; ATTEND Hospitalist
DX: A41.9 Sepsis, unspecified organism (principal); E43 Unspecified severe protein-calorie malnutrition; N17.9 Acute kidney failure, unspecified; I11.0 Hypertensive heart disease with heart failure; I50.32 Chronic diastolic (congestive) heart failure; Z99.81 Dependence on supplemental oxygen; J44.9 Chronic obstructive pulmonary disease, unspecified; E86.0 Dehydration; E44.0 Moderate protein-calorie malnutrition; R47.01 Aphasia; K52.9 Noninfective gastroenteritis and colitis, unspecified; R73.9 Hyperglycemia, unspecified; K74.60 Unspecified cirrhosis of liver; Z68.33 Body mass index [BMI] 33.0-33.9, adult; F17.210 Nicotine dependence, cigarettes, uncomplicated; F29 Unspecified psychosis not due to a substance or known physiological condition; F32.9 Major depressive disorder, single episode, unspecified; F41.9 Anxiety disorder, unspecified; G89.4 Chronic pain syndrome; I25.10 Atherosclerotic heart disease of native coronary artery without angina pectoris; K21.9 Gastro-esophageal reflux disease without esophagitis; K59.00 Constipation, unspecified; Z90.710 Acquired absence of both cervix and uterus; Z90.49 Acquired absence of other specified parts of digestive tract; Z86.718 Personal history of other venous thrombosis and embolism; Z85.528 Personal history of other malignant neoplasm of kidney; Z85.51 Personal history of malignant neoplasm of bladder
CPT/HCPCS: 36415; 71010; 74000; 74177; 74270; 80053; 81001; 83036; 83605; 83690; 83735; 84100; 84443; 85025; 85610; 87086; 87324; 93005; 96361; 96372; 96374; 96375; J0696; J1170; J1644; J2405; J2543; J7042; Q9967; J2060; J7030; J7040

== ENCOUNTER 2017-02-20 17:33 | Emergency (ER) | payer OTHER ==
[~2017-02-20] VITALS: Ht 157.5 cm; Wt 70.0 kg
[2017-02-20] MEDS ORDERED: SODIUM CHLORIDE 0.9% 1,000ML IVBOLUS ONE (18:30)
[2017-02-20] MEDS ORDERED: MORPHINE SULFATE 4 MG/ML, 1ML IVPush PRN (18:30)
[2017-02-20] MEDS ORDERED: SODIUM CHLORIDE FLUSH 10ML SYR IVF ONE (18:30)
[2017-02-20] MEDS ORDERED: ONDANSETRON 2MG/ML, 2ML IVPush ONE (18:30)
[2017-02-20] MEDS ORDERED: CEFTRIAXONE PMX 1GM/50ML 50 ML IVPB ONE (18:30)
[2017-02-20 19:30] LABS: BASOPHILS # (AUTO) 0.06 x10^3/uL (0-0.1); BASOPHILS % (AUTO) 1 % (0-1); EOSINOPHILS # (AUTO) 0.38 x10^3/uL (0-0.4); EOSINOPHILS % (AUTO) 3 % (1-7); LYMPHOCYTES # (AUTO) 2.32 x10^3/uL (1-3.4); LYMPHOCYTES % (AUTO) 18 % (22-44); MD NO; MEAN CORPUSCULAR HEMOGLOBIN 29.7 pg (27.0-34.8); MEAN CORPUSCULAR VOLUME 90.2 fL (80-100); MEAN PLATELET VOLUME 7.9 fL (7.4-10.4); MONOCYTES # (AUTO) 0.56 x10^3/uL (0.2-0.8); MONOCYTES % (AUTO) 4 % (2-9); NEUTROPHILS # (AUTO) 9.74 x10^3/uL (1.8-6.8); NEUTROPHILS % (AUTO) 75 % (42-75); PLATELET COUNT 289 x10^3/uL (130-400); RED BLOOD COUNT 4.62 x10^6/uL (3.82-5.3); RED CELL DISTRIBUTION WIDTH 13.6 % (9.6-15.2)
[2017-02-20 19:42] LABS: ALANINE AMINOTRANSFERASE 36 U/L (12-78); ALBUMIN 3.9 g/dL (3.4-5.0); ANION GAP 9 mmol/L (5-15); CHLORIDE 109 mmol/L (98-107); CREATININE 1.68 mg/dL (0.55-1.02)
[2017-02-20 19:45] LABS: ALKALINE PHOSPHATASE 111 U/L (45-117); BILIRUBIN,TOTAL 0.3 mg/dL (0.2-1.0); TOTAL PROTEIN 8.2 g/dL (6.4-8.2)
[2017-02-20] MEDS ORDERED: ALBUTEROL/IPRATROPIUM 2.5MG/0.5MG, 3 ML NPPB SCH (20:00)
[2017-02-20] MEDS ORDERED: ALBUTEROL/IPRATROPIUM 2.5MG/0.5MG, 3 ML ONE ×2 (20:16)
[2017-02-20 21:15] VITALS: BP 155/63
== END 2017-02-20 21:17 | disposition home or self-care (01) ==
LOC: ED 18:22
DX: J43.9 Emphysema, unspecified (principal); Z90.49 Acquired absence of other specified parts of digestive tract; Z90.710 Acquired absence of both cervix and uterus; I10 Essential (primary) hypertension; K21.9 Gastro-esophageal reflux disease without esophagitis; F17.210 Nicotine dependence, cigarettes, uncomplicated
CPT/HCPCS: 36415; 71045; 80053; 83605; 85025; 87040; 93005; 94640; 99285; J7620

== ENCOUNTER 2017-05-14 23:34 | Emergency (ER) | payer OTHER ==
[2017-05-14] MEDS ORDERED: ONDANSETRON 2MG/ML, 2ML ONE (23:58)
[2017-05-14] MEDS ORDERED: KETOROLAC 30 MG/1 ML ONE (23:58)
[2017-05-14] MEDS ORDERED: MORPHINE SULFATE 4 MG/ML, 1ML ONE (23:58)
[2017-05-15] LABS: BASOPHILS # (AUTO) 0.06 x10^3/uL (0-0.1); BASOPHILS % (AUTO) 1 % (0-1); EOSINOPHILS # (AUTO) 0.28 x10^3/uL (0-0.4); EOSINOPHILS % (AUTO) 4 % (1-7); LYMPHOCYTES # (AUTO) 3.13 x10^3/uL (1-3.4); LYMPHOCYTES % (AUTO) 39 % (22-44); MD NO; MEAN CORPUSCULAR HGB CONC 33.2 g/dL (32.4-35.8); MEAN CORPUSCULAR VOLUME 87.5 fL (80-100); MEAN PLATELET VOLUME 7.5 fL (7.4-10.4); MONOCYTES # (AUTO) 0.52 x10^3/uL (0.2-0.8); MONOCYTES % (AUTO) 6 % (2-9); NEUTROPHILS # (AUTO) 4.12 x10^3/uL (1.8-6.8); NEUTROPHILS % (AUTO) 51 % (42-75); PLATELET COUNT 250 x10^3/uL (130-400); RED BLOOD COUNT 4.25 x10^6/uL (3.82-5.3); RED CELL DISTRIBUTION WIDTH 14.4 % (9.6-15.2)
[2017-05-15] MEDS ORDERED: SODIUM CHLORIDE FLUSH 10ML SYR IVF ONE
[2017-05-15] MEDS ORDERED: SODIUM CHLORIDE 0.9% 1,000ML IVBOLUS ONE
[2017-05-15] MEDS ORDERED: MORPHINE SULFATE 4 MG/ML, 1ML IVPush PRN
[2017-05-15] MEDS ORDERED: KETOROLAC 30 MG/1 ML IVPush ONE
[2017-05-15] MEDS ORDERED: ONDANSETRON 2MG/ML, 2ML IVPush ONE
[2017-05-15 00:11] LABS: ALANINE AMINOTRANSFERASE 30 U/L (12-78); ALBUMIN 3.6 g/dL (3.4-5.0); ANION GAP 5 mmol/L (5-15); CALCIUM 8.8 mg/dL (8.5-10.1); CHLORIDE 110 mmol/L (98-107)
[2017-05-15 00:13] LABS: BILIRUBIN,TOTAL 0.2 mg/dL (0.2-1.0); CREATININE 1.47 mg/dL (0.55-1.02); TOTAL PROTEIN 7.7 g/dL (6.4-8.2)
[2017-05-15 00:15] LABS: CULTURE INDICATED? YES; MICROSCOPIC INDICATED
[2017-05-15 00:27] LABS: ALKALINE PHOSPHATASE 103 U/L (45-117)
[2017-05-15] MEDS ORDERED: OMNIPAQUE 350 MG/ML, 100ML BOTTLE ONE (01:02)
[2017-05-15 02:22] VITALS: BP 138/51
== END 2017-05-15 02:25 | disposition home or self-care (01) ==
LOC: ED 05-15 00:48
DX: R10.30 Lower abdominal pain, unspecified (principal); Z72.89 Other problems related to lifestyle; I10 Essential (primary) hypertension; K21.9 Gastro-esophageal reflux disease without esophagitis; E66.9 Obesity, unspecified; J43.9 Emphysema, unspecified; Z85.51 Personal history of malignant neoplasm of bladder; Z90.49 Acquired absence of other specified parts of digestive tract; Z90.710 Acquired absence of both cervix and uterus; F17.200 Nicotine dependence, unspecified, uncomplicated
CPT/HCPCS: 36415; 74177; 80053; 81001; 83690; 85025; 87086; 96361; 96374; 96375; 99285; J1885; J2405; J7030; Q9967

== ENCOUNTER 2017-06-26 10:56 | Inpatient (IN) | payer OTHER ==
[~2017-06-26] VITALS: Ht 157.5 cm; Wt 78.6 kg
[2017-06-26] MEDS ORDERED: SODIUM CHLORIDE FLUSH 10ML SYR IVF ONE (11:30)
[2017-06-26] MEDS ORDERED: ONDANSETRON ODT 4 MG PO ONE (11:30)
[2017-06-26] MEDS ORDERED: ONDANSETRON ODT 4 MG ONE (11:48)
[2017-06-26] MEDS ORDERED: MORPHINE SULFATE 4 MG/ML, 1ML ONE ×3 (11:48→17:48)
[2017-06-26 11:50] LABS: BASOPHILS # (AUTO) 0.08 x10^3/uL (0-0.1); BASOPHILS % (AUTO) 1 % (0-1); EOSINOPHILS # (AUTO) 0.22 x10^3/uL (0-0.4); EOSINOPHILS % (AUTO) 3 % (1-7); LYMPHOCYTES # (AUTO) 2.14 x10^3/uL (1-3.4); LYMPHOCYTES % (AUTO) 29 % (22-44); MD NO; MEAN CORPUSCULAR HEMOGLOBIN 27.8 pg (27.0-34.8); MEAN CORPUSCULAR HGB CONC 32.5 g/dL (32.4-35.8); MEAN CORPUSCULAR VOLUME 85.7 fL (80-100); MEAN PLATELET VOLUME 6.7 fL (7.4-10.4); MONOCYTES # (AUTO) 0.45 x10^3/uL (0.2-0.8); MONOCYTES % (AUTO) 6 % (2-9); NEUTROPHILS # (AUTO) 4.42 x10^3/uL (1.8-6.8); NEUTROPHILS % (AUTO) 61 % (42-75); PLATELET COUNT 321 x10^3/uL (130-400); RED BLOOD COUNT 4.62 x10^6/uL (3.82-5.3); RED CELL DISTRIBUTION WIDTH 13.9 % (9.6-15.2)
[2017-06-26] MEDS: MORPHINE SULFATE 4 MG/ML, 1ML IVPush PRN ×2 (11:52→13:45)
[2017-06-26 11:57] LABS: INTERNATIONAL NORMALIZED RATIO 1.01 (0.93-1.1); PROTHROMBIN TIME 10.5 Seconds (9.6-11.5)
[2017-06-26 12:01] LABS: ALANINE AMINOTRANSFERASE 38 U/L (12-78); ALBUMIN 3.6 g/dL (3.4-5.0); ANION GAP 5 mmol/L (5-15); CALCIUM 8.9 mg/dL (8.5-10.1); CHLORIDE 110 mmol/L (98-107); CREATININE 1.44 mg/dL (0.55-1.02)
[2017-06-26 12:03] LABS: ALKALINE PHOSPHATASE 105 U/L (45-117); BILIRUBIN,TOTAL 0.6 mg/dL (0.2-1.0); TOTAL PROTEIN 7.5 g/dL (6.4-8.2)
[2017-06-26] MEDS ORDERED: SODIUM CHLORIDE 0.9% 1,000ML IVBOLUS ONE (13:30)
[2017-06-26 14:46] LABS: CULTURE INDICATED? YES; MICROSCOPIC INDICATED
[2017-06-26] MEDS ORDERED: DIPH1TAB PO (15:30)
[2017-06-26] MEDS ORDERED: SODIUM CHLORIDE 0.9% 1,000 ML IV ONE (16:19)
[2017-06-26] MEDS ORDERED: SODIUM CHLORIDE FLUSH 10ML SYR IVF PRN (16:30)
[2017-06-26] MEDS ORDERED: ONDANSETRON 2MG/ML, 2ML IVPush PRN (17:00)
[2017-06-26] MEDS ORDERED: LABETALOL 5MG/ML, 20ML IVPush PRN (17:00)
[2017-06-26] MEDS: morphine SULFATE 10 MG/ML, 1ML IVPush PRN (17:51)
[2017-06-26 19:09] VITALS: BP 114/69
[2017-06-26 20:43] VITALS: BP 114/69
[2017-06-26] MEDS: D5%-0.45% NACL 1,000 ML IV SCH (21:21)
[2017-06-26] MEDS: HYDROXYZINE PAMOATE 50MG CAP PO SCH (21:22)
[2017-06-26] MEDS: ENOXAPARIN 40 MG/0.4 ML SQ SCH (21:22)
[2017-06-26] MEDS: FAMOTIDINE 20 MG/2 ML IVPush SCH (21:22)
[2017-06-26] MEDS: QUETIAPINE 100MG TABLET PO SCH (21:23)
[2017-06-26 21:30] VITALS: BP 144/75
[2017-06-27] MEDS: morphine SULFATE 10 MG/ML, 1ML IVPush PRN ×3 (01:33→16:13)
[2017-06-27 01:53] VITALS: BP 115/71
[2017-06-27] MEDS: D5%-0.45% NACL 1,000 ML IV SCH ×2 (05:15→16:14)
[2017-06-27 05:28] LABS: BASOPHILS # (AUTO) 0.04 x10^3/uL (0-0.1); BASOPHILS % (AUTO) 1 % (0-1); EOSINOPHILS # (AUTO) 0.13 x10^3/uL (0-0.4); EOSINOPHILS % (AUTO) 4 % (1-7); LYMPHOCYTES # (AUTO) 1.29 x10^3/uL (1-3.4); LYMPHOCYTES % (AUTO) 38 % (22-44); MD NO; MEAN CORPUSCULAR HEMOGLOBIN 28.2 pg (27.0-34.8); MEAN CORPUSCULAR HGB CONC 32.9 g/dL (32.4-35.8); MEAN CORPUSCULAR VOLUME 85.6 fL (80-100); MEAN PLATELET VOLUME 6.8 fL (7.4-10.4); MONOCYTES # (AUTO) 0.33 x10^3/uL (0.2-0.8); MONOCYTES % (AUTO) 10 % (2-9); NEUTROPHILS # (AUTO) 1.64 x10^3/uL (1.8-6.8); NEUTROPHILS % (AUTO) 48 % (42-75); PLATELET COUNT 226 x10^3/uL (130-400); RED BLOOD COUNT 4.06 x10^6/uL (3.82-5.3); RED CELL DISTRIBUTION WIDTH 13.7 % (9.6-15.2)
[2017-06-27 05:32] LABS: CHLORIDE 112 mmol/L (98-107)
[2017-06-27 05:48] LABS: ALANINE AMINOTRANSFERASE 117 U/L (12-78); ALBUMIN 2.7 g/dL (3.4-5.0); ALKALINE PHOSPHATASE 188 U/L (45-117); ANION GAP 5 mmol/L (5-15); CALCIUM 7.9 mg/dL (8.5-10.1); CREATININE 1.26 mg/dL (0.55-1.02); TOTAL PROTEIN 6.1 g/dL (6.4-8.2)
[2017-06-27 07:30] VITALS: BP 134/71
[2017-06-27] MEDS ORDERED: ALBUTEROL SULFATE 2.5 MG/3 ML ONE ×2 (07:48→20:53)
[2017-06-27] MEDS: SENNA/DOCUSATE TABLET PO SCH (09:00)
[2017-06-27] MEDS: FLUTICASONE/VILANTEROL 200-25MCG/INH INH SCH (09:00)
[2017-06-27] MEDS: ALBUTEROL SULFATE 2.5MG/0.5ML NPPB SCH ×2 (09:00→20:58)
[2017-06-27 09:09] VITALS: BP 115/75
[2017-06-27] MEDS: OMEPRAZOLE 20 MG CAPSULE.DR PO SCH (09:14)
[2017-06-27] MEDS: AMLODIPINE 5 MG TABLET PO SCH (09:14)
[2017-06-27] MEDS: QUETIAPINE 100MG TABLET PO SCH ×2 (09:14→20:38)
[2017-06-27] MEDS: PAROXETINE 20 MG TABLET PO SCH (09:14)
[2017-06-27] MEDS: HYDROXYZINE PAMOATE 50MG CAP PO SCH ×3 (09:15→20:37)
[2017-06-27] MEDS: FAMOTIDINE 20 MG/2 ML IVPush SCH ×2 (09:16→20:38)
[2017-06-27] MEDS: CEFTRIAXONE PMX 1GM/50ML 50 ML IV SCH (11:37)
[2017-06-27] MEDS: ONDANSETRON ODT 4 MG PO PRN (12:27)
[2017-06-27 16:14] VITALS: BP 106/67
[2017-06-27 19:36] VITALS: BP 111/66
[2017-06-27] MEDS: ENOXAPARIN 40 MG/0.4 ML SQ SCH (20:55)
[2017-06-28] MEDS: D5%-0.45% NACL 1,000 ML IV SCH ×3 (00:30→18:41)
[2017-06-28] MEDS: morphine SULFATE 10 MG/ML, 1ML IVPush PRN ×3 (01:21→16:13)
[2017-06-28 02:19] VITALS: BP 116/62
[2017-06-28] MEDS ORDERED: ALBUTEROL/IPRATROPIUM 2.5MG/0.5MG, 3 ML ONE (06:50)
[2017-06-28 07:28] VITALS: BP 119/72
[2017-06-28 07:59] LABS: BASOPHILS # (AUTO) 0.03 x10^3/uL (0-0.1); BASOPHILS % (AUTO) 1 % (0-1); EOSINOPHILS # (AUTO) 0.17 x10^3/uL (0-0.4); EOSINOPHILS % (AUTO) 3 % (1-7); LYMPHOCYTES # (AUTO) 1.49 x10^3/uL (1-3.4); LYMPHOCYTES % (AUTO) 30 % (22-44); MD NO; MEAN CORPUSCULAR HEMOGLOBIN 27.9 pg (27.0-34.8); MEAN CORPUSCULAR HGB CONC 32.7 g/dL (32.4-35.8); MEAN CORPUSCULAR VOLUME 85.4 fL (80-100); MEAN PLATELET VOLUME 6.5 fL (7.4-10.4); MONOCYTES # (AUTO) 0.36 x10^3/uL (0.2-0.8); MONOCYTES % (AUTO) 7 % (2-9); NEUTROPHILS % (AUTO) 59 % (42-75); PLATELET COUNT 235 x10^3/uL (130-400); RED BLOOD COUNT 4.04 x10^6/uL (3.82-5.3); RED CELL DISTRIBUTION WIDTH 13.5 % (9.6-15.2)
[2017-06-28 08:04] LABS: ALANINE AMINOTRANSFERASE 89 U/L (12-78); ALBUMIN 2.7 g/dL (3.4-5.0); ANION GAP 6 mmol/L (5-15); CALCIUM 7.6 mg/dL (8.5-10.1); CHLORIDE 111 mmol/L (98-107); CREATININE 1.18 mg/dL (0.55-1.02)
[2017-06-28 08:06] LABS: ALKALINE PHOSPHATASE 208 U/L (45-117); BILIRUBIN,TOTAL 0.5 mg/dL (0.2-1.0); TOTAL PROTEIN 6.1 g/dL (6.4-8.2)
[2017-06-28] MEDS ORDERED: FENTANYL PF 100 MCG/2ML ONE (08:47)
[2017-06-28] MEDS ORDERED: LIDOCAINE GEL 2%, 5ML ONE (08:47)
[2017-06-28] MEDS: HYDROXYZINE PAMOATE 50MG CAP PO SCH ×3 (09:00→21:20)
[2017-06-28] MEDS: OMEPRAZOLE 20 MG CAPSULE.DR PO SCH (09:00)
[2017-06-28] MEDS: FLUTICASONE/VILANTEROL 200-25MCG/INH INH SCH (09:00)
[2017-06-28] MEDS: ALBUTEROL SULFATE 2.5MG/0.5ML NPPB SCH ×2 (09:00→21:30)
[2017-06-28] MEDS: AMLODIPINE 5 MG TABLET PO SCH (09:00)
[2017-06-28] MEDS: PAROXETINE 20 MG TABLET PO SCH (09:00)
[2017-06-28] MEDS: SENNA/DOCUSATE TABLET PO SCH (09:00)
[2017-06-28] MEDS: QUETIAPINE 100MG TABLET PO SCH ×2 (09:00→21:20)
[2017-06-28] MEDS: FAMOTIDINE 20 MG/2 ML IVPush SCH ×2 (09:00→21:17)
[2017-06-28] MEDS ORDERED: SUCCINYLCHOLINE 20 MG/ML, 10ML ONE (09:01)
[2017-06-28] MEDS ORDERED: ONDANSETRON ODT 8 MG ONE (09:01)
[2017-06-28] MEDS ORDERED: PROPOFOL 10 MG/ML, 20ML ONE (09:01)
[2017-06-28] MEDS ORDERED: DEXAMETHASONE 4 MG/ML, 5ML ONE (09:01)
[2017-06-28] MEDS ORDERED: MIDAZOLAM 1 MG/ML, 2ML IV PRN (09:30)
[2017-06-28] MEDS ORDERED: ALBUTEROL/IPRATROPIUM 2.5MG/0.5MG, 3 ML NPPB PRN (09:30)
[2017-06-28] MEDS ORDERED: PROMETHAZINE 25 MG/ML, 1ML IV PRN (09:30)
[2017-06-28] MEDS ORDERED: hydrALAzine 20 MG/ML, 1ML IV PRN (09:30)
[2017-06-28] MEDS ORDERED: LABETALOL 5MG/ML, 20ML IV PRN (09:30)
[2017-06-28] MEDS ORDERED: MORPHINE SULFATE 4 MG/ML, 1ML IVPush PRN (09:30)
[2017-06-28] MEDS ORDERED: OXYcodone 5 MG/5 ML ORAL.SOL UDC PO PRN (09:30)
[2017-06-28] MEDS ORDERED: DIAZEPAM 5 MG/ML, 2ML IVPush PRN (09:30)
[2017-06-28] MEDS ORDERED: ALBUTEROL SULFATE 2.5 MG/3 ML NPPB PRN (09:30)
[2017-06-28] MEDS ORDERED: FENTANYL PF 100 MCG/2ML IV PRN (09:30)
[2017-06-28] MEDS ORDERED: MAGNESIUM SULFATE PMX 2GM/50ML 50 ML IV ONE (10:00)
[2017-06-28] MEDS: CEFTRIAXONE PMX 1GM/50ML 50 ML IV SCH (12:44)
[2017-06-28 15:42] VITALS: BP 107/50
[2017-06-28 19:09] VITALS: BP 103/65
[2017-06-28] MEDS: ENOXAPARIN 40 MG/0.4 ML SQ SCH (21:20)
[2017-06-28] MEDS ORDERED: ALBUTEROL SULFATE 2.5 MG/3 ML ONE (21:42)
[2017-06-29] MEDS: morphine SULFATE 10 MG/ML, 1ML IVPush PRN ×4 (00:54→23:15)
[2017-06-29] MEDS: D5%-0.45% NACL 1,000 ML IV SCH ×3 (03:15→18:03)
[2017-06-29 04:55] VITALS: BP 110/75
[2017-06-29 04:55] LABS: BASOPHILS # (AUTO) 0.02 x10^3/uL (0-0.1); BASOPHILS % (AUTO) 0 % (0-1); EOSINOPHILS % (AUTO) 0 % (1-7); LYMPHOCYTES # (AUTO) 0.96 x10^3/uL (1-3.4); LYMPHOCYTES % (AUTO) 16 % (22-44); MD NO; MEAN CORPUSCULAR VOLUME 84.9 fL (80-100); MONOCYTES # (AUTO) 0.33 x10^3/uL (0.2-0.8); MONOCYTES % (AUTO) 6 % (2-9); NEUTROPHILS # (AUTO) 4.63 x10^3/uL (1.8-6.8); NEUTROPHILS % (AUTO) 78 % (42-75); PLATELET COUNT 212 x10^3/uL (130-400); RED BLOOD COUNT 3.92 x10^6/uL (3.82-5.3); RED CELL DISTRIBUTION WIDTH 13.6 % (9.6-15.2)
[2017-06-29 05:04] LABS: CHLORIDE 111 mmol/L (98-107)
[2017-06-29 05:09] LABS: ALANINE AMINOTRANSFERASE 236 U/L (12-78); ALBUMIN 2.7 g/dL (3.4-5.0); ALKALINE PHOSPHATASE 336 U/L (45-117); ANION GAP 4 mmol/L (5-15); BILIRUBIN,TOTAL 1.1 mg/dL (0.2-1.0); CALCIUM 8.1 mg/dL (8.5-10.1); CREATININE 1.27 mg/dL (0.55-1.02); TOTAL PROTEIN 6.1 g/dL (6.4-8.2)
[2017-06-29 07:53] VITALS: BP 113/63
[2017-06-29] MEDS: ALBUTEROL SULFATE 2.5MG/0.5ML NPPB SCH (09:00)
[2017-06-29] MEDS: HYDROXYZINE PAMOATE 50MG CAP PO SCH ×3 (09:04→20:15)
[2017-06-29] MEDS: AMLODIPINE 5 MG TABLET PO SCH (09:04)
[2017-06-29] MEDS: SENNA/DOCUSATE TABLET PO SCH (09:05)
[2017-06-29] MEDS: OMEPRAZOLE 20 MG CAPSULE.DR PO SCH (09:05)
[2017-06-29] MEDS: QUETIAPINE 100MG TABLET PO SCH ×2 (09:05→20:13)
[2017-06-29] MEDS: PAROXETINE 20 MG TABLET PO SCH (09:05)
[2017-06-29] MEDS: FAMOTIDINE 20 MG/2 ML IVPush SCH ×2 (09:05→20:15)
[2017-06-29] MEDS ORDERED: ALBUTEROL SULFATE 2.5 MG/3 ML ONE (10:23)
[2017-06-29] MEDS: FLUTICASONE/VILANTEROL 200-25MCG/INH INH SCH (10:49)
[2017-06-29] MEDS: CEFTRIAXONE PMX 1GM/50ML 50 ML IV SCH (12:45)
[2017-06-29 13:07] VITALS: BP 105/61
[2017-06-29 19:37] VITALS: BP 95/60
[2017-06-29] MEDS: ALBUTEROL SULFATE 2.5 MG/3 ML NPPB SCH (19:50)
[2017-06-30 01:19] VITALS: BP 103/57
[2017-06-30] MEDS: D5%-0.45% NACL 1,000 ML IV SCH ×2 (02:45→14:34)
[2017-06-30 05:49] LABS: BASOPHILS # (AUTO) 0.05 x10^3/uL (0-0.1); BASOPHILS % (AUTO) 1 % (0-1); EOSINOPHILS # (AUTO) 0.19 x10^3/uL (0-0.4); EOSINOPHILS % (AUTO) 4 % (1-7); LYMPHOCYTES # (AUTO) 1.91 x10^3/uL (1-3.4); LYMPHOCYTES % (AUTO) 38 % (22-44); MD NO; MEAN CORPUSCULAR HEMOGLOBIN 28.5 pg (27.0-34.8); MEAN CORPUSCULAR HGB CONC 33.1 g/dL (32.4-35.8); MONOCYTES # (AUTO) 0.37 x10^3/uL (0.2-0.8); MONOCYTES % (AUTO) 8 % (2-9); NEUTROPHILS # (AUTO) 2.46 x10^3/uL (1.8-6.8); NEUTROPHILS % (AUTO) 50 % (42-75); PLATELET COUNT 223 x10^3/uL (130-400); RED BLOOD COUNT 3.71 x10^6/uL (3.82-5.3); RED CELL DISTRIBUTION WIDTH 14.3 % (9.6-15.2)
[2017-06-30 06:06] LABS: ALBUMIN 2.5 g/dL (3.4-5.0); ANION GAP 4 mmol/L (5-15); CALCIUM 8.2 mg/dL (8.5-10.1); CHLORIDE 116 mmol/L (98-107)
[2017-06-30 06:10] LABS: ALANINE AMINOTRANSFERASE 212 U/L (12-78); ALKALINE PHOSPHATASE 288 U/L (45-117); BILIRUBIN,TOTAL 0.9 mg/dL (0.2-1.0); CREATININE 1.16 mg/dL (0.55-1.02); TOTAL PROTEIN 5.9 g/dL (6.4-8.2)
[2017-06-30] MEDS: FLUTICASONE/VILANTEROL 200-25MCG/INH INH SCH (08:21)
[2017-06-30] MEDS: AMLODIPINE 5 MG TABLET PO SCH (08:21)
[2017-06-30] MEDS: PAROXETINE 20 MG TABLET PO SCH (08:21)
[2017-06-30] MEDS: QUETIAPINE 100MG TABLET PO SCH ×2 (08:21→20:51)
[2017-06-30] MEDS: SENNA/DOCUSATE TABLET PO SCH (08:21)
[2017-06-30] MEDS: FAMOTIDINE 20 MG/2 ML IVPush SCH (08:21)
[2017-06-30] MEDS: OMEPRAZOLE 20 MG CAPSULE.DR PO SCH (08:21)
[2017-06-30] MEDS: HYDROXYZINE PAMOATE 50MG CAP PO SCH ×3 (08:22→20:51)
[2017-06-30] MEDS: morphine SULFATE 10 MG/ML, 1ML IVPush PRN ×3 (08:31→20:58)
[2017-06-30] MEDS: ALBUTEROL SULFATE 2.5 MG/3 ML NPPB SCH ×2 (09:00→19:59)
[2017-06-30 09:05] VITALS: BP 126/69
[2017-06-30] MEDS ORDERED: OMNIPAQUE 350 MG/ML, 100ML BOTTLE ONE (14:16)
[2017-06-30] MEDS: CEFTRIAXONE PMX 1GM/50ML 50 ML IV SCH (14:34)
[2017-06-30 14:40] VITALS: BP 121/66
[2017-06-30 19:31] VITALS: BP 125/71
[2017-07-01 00:46] VITALS: BP 142/75
[2017-07-01 05:29] LABS: BASOPHILS # (AUTO) 0.07 x10^3/uL (0-0.1); BASOPHILS % (AUTO) 1 % (0-1); EOSINOPHILS # (AUTO) 0.24 x10^3/uL (0-0.4); EOSINOPHILS % (AUTO) 5 % (1-7); LYMPHOCYTES # (AUTO) 1.82 x10^3/uL (1-3.4); LYMPHOCYTES % (AUTO) 34 % (22-44); MD NO; MEAN CORPUSCULAR HEMOGLOBIN 28.4 pg (27.0-34.8); MEAN CORPUSCULAR HGB CONC 33.2 g/dL (32.4-35.8); MEAN CORPUSCULAR VOLUME 85.7 fL (80-100); MEAN PLATELET VOLUME 7.3 fL (7.4-10.4); MONOCYTES % (AUTO) 8 % (2-9); NEUTROPHILS # (AUTO) 2.77 x10^3/uL (1.8-6.8); NEUTROPHILS % (AUTO) 52 % (42-75); PLATELET COUNT 249 x10^3/uL (130-400); RED BLOOD COUNT 4.07 x10^6/uL (3.82-5.3); RED CELL DISTRIBUTION WIDTH 13.9 % (9.6-15.2)
[2017-07-01 05:43] LABS: ALBUMIN 2.7 g/dL (3.4-5.0); ANION GAP 5 mmol/L (5-15); CALCIUM 8.1 mg/dL (8.5-10.1); CHLORIDE 111 mmol/L (98-107)
[2017-07-01 05:45] LABS: CREATININE 1.17 mg/dL (0.55-1.02)
[2017-07-01 07:19] VITALS: BP 125/75
[2017-07-01] MEDS: OMEPRAZOLE 20 MG CAPSULE.DR PO SCH (08:32)
[2017-07-01] MEDS: AMLODIPINE 5 MG TABLET PO SCH (08:32)
[2017-07-01] MEDS: HYDROXYZINE PAMOATE 50MG CAP PO SCH ×3 (08:32→20:24)
[2017-07-01] MEDS: QUETIAPINE 100MG TABLET PO SCH ×2 (08:32→20:25)
[2017-07-01] MEDS: PAROXETINE 20 MG TABLET PO SCH (08:32)
[2017-07-01] MEDS: SENNA/DOCUSATE TABLET PO SCH (08:32)
[2017-07-01] MEDS: FLUTICASONE/VILANTEROL 200-25MCG/INH INH SCH (08:40)
[2017-07-01] MEDS: morphine SULFATE 10 MG/ML, 1ML IVPush PRN (10:02)
[2017-07-01] MEDS: ALBUTEROL SULFATE 2.5 MG/3 ML NPPB SCH ×2 (10:05→19:46)
[2017-07-01] MEDS: CEFTRIAXONE PMX 1GM/50ML 50 ML IV SCH (13:17)
[2017-07-01 13:59] VITALS: BP 104/68
[2017-07-01] MEDS: ACETAMINOPHEN 325 MG TABLET PO PRN ×2 (14:32→20:25)
[2017-07-01] MEDS ORDERED: KETOROLAC 30 MG/1 ML IV ONE (15:00)
[2017-07-01 15:56] LABS: ALBUMIN 2.9 g/dL (3.4-5.0); ANION GAP 5 mmol/L (5-15); CALCIUM 8.5 mg/dL (8.5-10.1); CHLORIDE 108 mmol/L (98-107)
[2017-07-01 16:00] LABS: ALANINE AMINOTRANSFERASE 151 U/L (12-78); ALKALINE PHOSPHATASE 301 U/L (45-117); BILIRUBIN,TOTAL 0.6 mg/dL (0.2-1.0); CREATININE 1.24 mg/dL (0.55-1.02); TOTAL PROTEIN 6.6 g/dL (6.4-8.2)
[2017-07-01 19:40] VITALS: BP 126/71
[2017-07-01] MEDS: BISACODYL 10 MG SUPP PR SCH (20:25)
[2017-07-02 00:46] VITALS: BP 99/64
[2017-07-02 05:44] LABS: BASOPHILS % (AUTO) 1 % (0-1); EOSINOPHILS # (AUTO) 0.28 x10^3/uL (0-0.4); EOSINOPHILS % (AUTO) 3 % (1-7); LYMPHOCYTES # (AUTO) 1.82 x10^3/uL (1-3.4); LYMPHOCYTES % (AUTO) 21 % (22-44); MD NO; MEAN CORPUSCULAR HEMOGLOBIN 28.8 pg (27.0-34.8); MEAN CORPUSCULAR HGB CONC 33.8 g/dL (32.4-35.8); MEAN CORPUSCULAR VOLUME 85.3 fL (80-100); MEAN PLATELET VOLUME 6.9 fL (7.4-10.4); MONOCYTES # (AUTO) 0.52 x10^3/uL (0.2-0.8); MONOCYTES % (AUTO) 6 % (2-9); NEUTROPHILS % (AUTO) 69 % (42-75); PLATELET COUNT 256 x10^3/uL (130-400); RED BLOOD COUNT 4.34 x10^6/uL (3.82-5.3); RED CELL DISTRIBUTION WIDTH 13.9 % (9.6-15.2)
[2017-07-02 05:51] LABS: ALANINE AMINOTRANSFERASE 123 U/L (12-78); ALBUMIN 2.8 g/dL (3.4-5.0); ANION GAP 6 mmol/L (5-15); CALCIUM 8.8 mg/dL (8.5-10.1); CHLORIDE 110 mmol/L (98-107); CREATININE 1.32 mg/dL (0.55-1.02)
[2017-07-02 05:53] LABS: ALKALINE PHOSPHATASE 273 U/L (45-117); BILIRUBIN,TOTAL 0.5 mg/dL (0.2-1.0); TOTAL PROTEIN 6.7 g/dL (6.4-8.2)
[2017-07-02] MEDS: ALBUTEROL SULFATE 2.5 MG/3 ML NPPB SCH ×2 (06:47→19:29)
[2017-07-02 07:26] VITALS: BP 130/75
[2017-07-02] MEDS: SENNA/DOCUSATE TABLET PO SCH (09:00)
[2017-07-02] MEDS: BISACODYL 10 MG SUPP PR SCH ×2 (09:24→21:00)
[2017-07-02] MEDS: OMEPRAZOLE 20 MG CAPSULE.DR PO SCH (09:30)
[2017-07-02] MEDS: FLUTICASONE/VILANTEROL 200-25MCG/INH INH SCH (09:30)
[2017-07-02] MEDS: PAROXETINE 20 MG TABLET PO SCH (09:31)
[2017-07-02] MEDS: QUETIAPINE 100MG TABLET PO SCH ×2 (09:31→19:45)
[2017-07-02] MEDS: HYDROXYZINE PAMOATE 50MG CAP PO SCH ×3 (09:31→19:45)
[2017-07-02] MEDS: AMLODIPINE 5 MG TABLET PO SCH (09:31)
[2017-07-02] MEDS: CEFTRIAXONE PMX 1GM/50ML 50 ML IV SCH (12:14)
[2017-07-02 12:58] VITALS: BP 104/67
[2017-07-02 19:12] VITALS: BP 101/53
[2017-07-03 01:53] VITALS: BP 124/74
[2017-07-03 05:18] LABS: BASOPHILS # (AUTO) 0.12 x10^3/uL (0-0.1); BASOPHILS % (AUTO) 2 % (0-1); EOSINOPHILS # (AUTO) 0.28 x10^3/uL (0-0.4); EOSINOPHILS % (AUTO) 4 % (1-7); LYMPHOCYTES # (AUTO) 2.35 x10^3/uL (1-3.4); LYMPHOCYTES % (AUTO) 34 % (22-44); MD NO; MEAN CORPUSCULAR HEMOGLOBIN 27.8 pg (27.0-34.8); MEAN CORPUSCULAR HGB CONC 32.5 g/dL (32.4-35.8); MEAN CORPUSCULAR VOLUME 85.4 fL (80-100); MEAN PLATELET VOLUME 7.1 fL (7.4-10.4); MONOCYTES # (AUTO) 0.49 x10^3/uL (0.2-0.8); MONOCYTES % (AUTO) 7 % (2-9); NEUTROPHILS # (AUTO) 3.73 x10^3/uL (1.8-6.8); NEUTROPHILS % (AUTO) 54 % (42-75); PLATELET COUNT 270 x10^3/uL (130-400); RED BLOOD COUNT 4.27 x10^6/uL (3.82-5.3)
[2017-07-03 05:31] LABS: ALBUMIN 2.8 g/dL (3.4-5.0); ANION GAP 7 mmol/L (5-15); CALCIUM 8.7 mg/dL (8.5-10.1); CHLORIDE 110 mmol/L (98-107)
[2017-07-03 05:34] LABS: CREATININE 1.48 mg/dL (0.55-1.02)
[2017-07-03] MEDS: ALBUTEROL SULFATE 2.5 MG/3 ML NPPB SCH ×2 (06:15→21:00)
[2017-07-03] MEDS ORDERED: LACTATED RINGERS 1,000 ML IVBOLUS ONE (07:00)
[2017-07-03 07:20] LABS: ALBUMIN 2.8 g/dL (3.4-5.0)
[2017-07-03 07:32] LABS: BILIRUBIN, DIRECT 0.1 mg/dL (0.1-0.2)
[2017-07-03 07:34] LABS: BILIRUBIN,INDIRECT 0.2 mg/dL (0.0-2.0); BILIRUBIN,TOTAL 0.3 mg/dL (0.2-1.0); TOTAL PROTEIN 6.6 g/dL (6.4-8.2)
[2017-07-03 08:01] VITALS: BP 115/66
[2017-07-03] MEDS: BISACODYL 10 MG SUPP PR SCH ×2 (09:00→20:48)
[2017-07-03] MEDS: OMEPRAZOLE 20 MG CAPSULE.DR PO SCH (09:37)
[2017-07-03] MEDS: CEFDINIR 300 MG CAPSULE PO SCH ×2 (09:37→20:48)
[2017-07-03] MEDS: PAROXETINE 20 MG TABLET PO SCH (09:37)
[2017-07-03] MEDS: AMLODIPINE 5 MG TABLET PO SCH (09:37)
[2017-07-03] MEDS: POLYETHYLENE GLYCOL 17 GM PACKET PO SCH (09:37)
[2017-07-03] MEDS: SENNA/DOCUSATE TABLET PO SCH (09:37)
[2017-07-03] MEDS: ACETAMINOPHEN 325 MG TABLET PO PRN (09:38)
[2017-07-03] MEDS: HYDROXYZINE PAMOATE 50MG CAP PO SCH ×3 (09:38→20:49)
[2017-07-03] MEDS: QUETIAPINE 100MG TABLET PO SCH ×2 (09:38→20:49)
[2017-07-03] MEDS: FLUTICASONE/VILANTEROL 200-25MCG/INH INH SCH (10:05)
[2017-07-03] MEDS ORDERED: CEFD300C37 PO (10:48)
[2017-07-03 11:31] LABS: ANION GAP 7 mmol/L (5-15); CALCIUM 8.1 mg/dL (8.5-10.1); CHLORIDE 109 mmol/L (98-107)
[2017-07-03 11:32] LABS: CREATININE 1.39 mg/dL (0.55-1.02)
[2017-07-03] MEDS ORDERED: LACTATED RINGERS 500 ML IVBOLUS ONE (14:30)
[2017-07-03 17:26] VITALS: BP 119/72
[2017-07-03 18:59] VITALS: BP 124/75
[2017-07-04 02:49] VITALS: BP 109/69
[2017-07-04 06:13] VITALS: BP 120/62
[2017-07-04] MEDS: ALBUTEROL SULFATE 2.5 MG/3 ML NPPB SCH ×2 (06:47→19:36)
[2017-07-04] MEDS: BISACODYL 10 MG SUPP PR SCH ×2 (09:00→19:22)
[2017-07-04] MEDS: SENNA/DOCUSATE TABLET PO SCH (09:00)
[2017-07-04] MEDS: POLYETHYLENE GLYCOL 17 GM PACKET PO SCH (09:00)
[2017-07-04] MEDS: ONDANSETRON ODT 4 MG PO PRN (10:03)
[2017-07-04] MEDS: FLUTICASONE/VILANTEROL 200-25MCG/INH INH SCH (10:03)
[2017-07-04] MEDS: CEFDINIR 300 MG CAPSULE PO SCH ×2 (10:04→19:32)
[2017-07-04] MEDS: QUETIAPINE 100MG TABLET PO SCH ×2 (10:04→19:32)
[2017-07-04] MEDS: AMLODIPINE 5 MG TABLET PO SCH (10:04)
[2017-07-04] MEDS: ACETAMINOPHEN 325 MG TABLET PO PRN (10:05)
[2017-07-04] MEDS: HYDROXYZINE PAMOATE 50MG CAP PO SCH ×3 (10:05→19:32)
[2017-07-04] MEDS: PAROXETINE 20 MG TABLET PO SCH (10:06)
[2017-07-04] MEDS: OMEPRAZOLE 20 MG CAPSULE.DR PO SCH (10:07)
[2017-07-04 14:56] VITALS: BP 109/67
[2017-07-04 19:07] VITALS: BP 113/65
[2017-07-05 00:46] VITALS: BP 108/55
[2017-07-05 07:08] VITALS: BP 146/76
[2017-07-05] MEDS: POLYETHYLENE GLYCOL 17 GM PACKET PO SCH (09:00)
[2017-07-05] MEDS: ALBUTEROL SULFATE 2.5 MG/3 ML NPPB SCH ×2 (09:00→09:12)
[2017-07-05] MEDS: BISACODYL 10 MG SUPP PR SCH (09:00)
[2017-07-05] MEDS: SENNA/DOCUSATE TABLET PO SCH (09:00)
[2017-07-05] MEDS: PAROXETINE 20 MG TABLET PO SCH (09:01)
[2017-07-05] MEDS: CEFDINIR 300 MG CAPSULE PO SCH (09:01)
[2017-07-05] MEDS: OMEPRAZOLE 20 MG CAPSULE.DR PO SCH (09:01)
[2017-07-05] MEDS: ACETAMINOPHEN 325 MG TABLET PO PRN (09:01)
[2017-07-05] MEDS: AMLODIPINE 5 MG TABLET PO SCH (09:01)
[2017-07-05] MEDS: QUETIAPINE 100MG TABLET PO SCH (09:01)
[2017-07-05] MEDS: FLUTICASONE/VILANTEROL 200-25MCG/INH INH SCH (09:02)
[2017-07-05] MEDS: HYDROXYZINE PAMOATE 50MG CAP PO SCH (09:04)
== END 2017-07-05 11:36 | disposition home or self-care (01) | DRG 438 ==
LOC: ED 12:02 → EDIP 16:19 → 3NE 17:56
PROVIDERS: ADMIT Hospitalist; ATTEND Hospitalist
PROC: 0T9B70Z Drainage of Bladder with Drainage Device, Via Natural or Artificial Opening (ICD-10-PCS; 2017-06-26)
PROC: 0F798ZZ Dilation of Common Bile Duct, Via Natural or Artificial Opening Endoscopic (ICD-10-PCS; 2017-06-28)
PROC: BF131ZZ Fluoroscopy of Gallbladder and Bile Ducts using Low Osmolar Contrast (ICD-10-PCS; 2017-06-28)
PROC: 0FC98ZZ Extirpation of Matter from Common Bile Duct, Via Natural or Artificial Opening Endoscopic (ICD-10-PCS; principal; 2017-06-28 09:00)
DX: K85.10 Biliary acute pancreatitis without necrosis or infection (principal); N17.0 Acute kidney failure with tubular necrosis; N39.0 Urinary tract infection, site not specified; K80.50 Calculus of bile duct without cholangitis or cholecystitis without obstruction; F41.9 Anxiety disorder, unspecified; I10 Essential (primary) hypertension; K27.9 Peptic ulcer, site unspecified, unspecified as acute or chronic, without hemorrhage or perforation; R74.0 Nonspecific elevation of levels of transaminase and lactic acid dehydrogenase [LDH]; B18.2 Chronic viral hepatitis C; F17.210 Nicotine dependence, cigarettes, uncomplicated; F31.9 Bipolar disorder, unspecified; G89.29 Other chronic pain; I25.2 Old myocardial infarction; K21.9 Gastro-esophageal reflux disease without esophagitis; K52.9 Noninfective gastroenteritis and colitis, unspecified; K59.00 Constipation, unspecified; Z82.5 Family history of asthma and other chronic lower respiratory diseases; Z85.51 Personal history of malignant neoplasm of bladder; Z85.528 Personal history of other malignant neoplasm of kidney; Z86.73 Personal history of transient ischemic attack (TIA), and cerebral infarction without residual deficits; Z87.11 Personal history of peptic ulcer disease; Z90.49 Acquired absence of other specified parts of digestive tract; Z90.5 Acquired absence of kidney; Z90.710 Acquired absence of both cervix and uterus; Z99.81 Dependence on supplemental oxygen; J43.9 Emphysema, unspecified
CPT/HCPCS: 36415; 74018; 74177; 74181; 74328; 80048; 80053; 80076; 81001; 82040; 82150; 83690; 83735; 84100; 84439; 84443; 85025; 85610; 87040; 87077; 87086; 87186; 93005; 94640; 96361; 96374; 96376; 99285; J0696; J1100; J1650; J1885; J2704; J3010; J7120; J7611; J7613; Q0162; Q9967; C1769; J0330; J2270; J3475; J7030; S0028

== ENCOUNTER 2017-12-09 19:49 | Emergency (ER) | payer OTHER ==
[~2017-12-09] VITALS: Ht 157.5 cm; Wt 72.3 kg
[~2017-12-09 19:49] MED LIST changes: -AMLO5TAB2 PO; +AMLO5TAB7 PO; -CLON-365 PO; +CLON1TAB11 PO; +DIPH1TAB PO; -SENN1TAB7 PO; +SENN1TAB8 PO
[2017-12-09] MEDS ORDERED: MORPHINE SULFATE 4 MG/ML, 1ML IVPush PRN (20:00)
[2017-12-09] MEDS ORDERED: SODIUM CHLORIDE FLUSH 10ML SYR IVF ONE (20:00)
[2017-12-09] MEDS ORDERED: ONDANSETRON 2MG/ML, 2ML IVPush ONE (20:00)
[2017-12-09 20:24] LABS: BASOPHILS % (AUTO) 1 % (0-1); EOSINOPHILS % (AUTO) 4 % (1-7); LYMPHOCYTES # (AUTO) 3.18 x10^3/uL (1-3.4); LYMPHOCYTES % (AUTO) 26 % (22-44); MD NO; MEAN CORPUSCULAR HEMOGLOBIN 30.5 pg (27.0-34.8); MEAN CORPUSCULAR VOLUME 89.8 fL (80-100); MEAN PLATELET VOLUME 7.5 fL (7.4-10.4); MONOCYTES # (AUTO) 0.74 x10^3/uL (0.2-0.8); MONOCYTES % (AUTO) 6 % (2-9); NEUTROPHILS # (AUTO) 7.82 x10^3/uL (1.8-6.8); NEUTROPHILS % (AUTO) 63 % (42-75); PLATELET COUNT 326 x10^3/uL (130-400)
[2017-12-09 20:32] LABS: ALBUMIN 3.7 g/dL (3.4-5.0); ANION GAP 9 mmol/L (5-15); CALCIUM 8.9 mg/dL (8.5-10.1); CHLORIDE 107 mmol/L (98-107)
[2017-12-09 20:36] LABS: ALANINE AMINOTRANSFERASE 23 U/L (12-78); ALKALINE PHOSPHATASE 113 U/L (45-117); BILIRUBIN,TOTAL 0.3 mg/dL (0.2-1.0); CREATININE 1.41 mg/dL (0.55-1.02); TOTAL PROTEIN 8.5 g/dL (6.4-8.2)
[2017-12-09 20:40] LABS: MICROSCOPIC AUTO
[2017-12-09 20:46] LABS: CULTURE INDICATED? NO
[2017-12-09 23:00] VITALS: BP 149/72
== END 2017-12-09 23:01 | disposition home or self-care (01) ==
LOC: ED 21:32
DX: R10.31 Right lower quadrant pain (principal); R10.32 Left lower quadrant pain; K21.9 Gastro-esophageal reflux disease without esophagitis; F32.9 Major depressive disorder, single episode, unspecified; I10 Essential (primary) hypertension; J44.9 Chronic obstructive pulmonary disease, unspecified; Z90.49 Acquired absence of other specified parts of digestive tract; Z90.710 Acquired absence of both cervix and uterus; Z85.51 Personal history of malignant neoplasm of bladder
CPT/HCPCS: 36415; 71045; 74177; 80053; 81001; 83690; 85025; 99285

== ENCOUNTER 2020-09-04 18:31 | Inpatient (IN) | payer OTHER ==
[~2020-09-04] VITALS: Ht 157.5 cm; Wt 80.7 kg
[~2020-09-04 18:31] MED LIST changes: -ALBU6.7H INH; +ALBU6.7H8 INH; +AMLO-150 PO; -AMLO5TAB7 PO; +FLUO40CA2 PO; +HYDR-2214 PO; -HYDR-3240 PO; +HYDR-3248 PO; -HYDR-3307 PO; +SENN-177 PO; -SENN1TAB8 PO
[2020-09-04 19:27] LABS: BASOPHILS % (AUTO) 2 % (0-1); EOSINOPHILS % (AUTO) 2 % (1-7); LYMPHOCYTES % (AUTO) 21 % (22-44); MEAN CORPUSCULAR HEMOGLOBIN 28.2 pg (27.0-34.8); MEAN CORPUSCULAR HGB CONC 32.4 g/dL (32.4-35.8); MEAN PLATELET VOLUME 7.7 fL (7.4-10.4); MONOCYTES % (AUTO) 7 % (2-9); NEUTROPHILS % (AUTO) 69 % (42-75); PLATELET COUNT 335 x10^3/uL (130-400); RED BLOOD COUNT 5.15 x10^6/uL (3.82-5.3); RED CELL DISTRIBUTION WIDTH 16.3 % (9.6-15.2)
[2020-09-04 19:35] LABS: ALBUMIN 3.5 g/dL (3.4-5.0); ANION GAP 5 mmol/L (5-15); CALCIUM 9.2 mg/dL (8.5-10.1); CHLORIDE 108 mmol/L (98-107)
[2020-09-04 19:39] LABS: ALANINE AMINOTRANSFERASE 80 U/L (12-78); ALKALINE PHOSPHATASE 219 U/L (45-117); BILIRUBIN,TOTAL 0.6 mg/dL (0.2-1.0); CREATININE 1.49 mg/dL (0.55-1.02); TOTAL PROTEIN 8.5 g/dL (6.4-8.2)
--- NOTE | 2020-09-04 20:07 | NUR ---
PT BIB POV. PT STATES UNABLE TO EAT, ABD PAIN, AND PAINFUL URINATION X MONTHS. 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 PT ALSO STATES SHE WAS HOSPITALIZED AT [facility] FOR MONTHS AND WAS RELEASED APPROX 8 WEEKS AGO. PT REPORTS PAIN KEEPS GETTING WORSE AND SHE CAN FEEL LUMPS IN HER ABD. PT RESTING IN [facility], MONITORING IN PLACE, NADN AT THIS TIME, URINE SPECIMEN SENT TO LAB, [facility].
[2020-09-04 20:19] LABS: MICROSCOPIC INDICATED
[2020-09-04] MEDS ORDERED: SODIUM CHLORIDE 0.9%, 500ML IVBOLUS ONE (21:00)
[2020-09-04] MEDS ORDERED: CEFTRIAXONE 1,000 MG in DEXTROSE 5% 50 ML IVPB ONE ×2 (21:00→23:30)
[2020-09-04 22:22] VITALS: BP 133/76
[2020-09-04] MEDS ORDERED: LOPE2CAP PO (23:05)
[2020-09-04] MEDS ORDERED: CLON1TAB11 PO (23:06)
[2020-09-04] MEDS ORDERED: AMLO-210 PO (23:08)
[2020-09-04] MEDS ORDERED: QUET200T79 PO (23:11)
[2020-09-04] MEDS ORDERED: SUCR1TAB PO (23:12)
[2020-09-04] MEDS ORDERED: ACETAMINOPHEN 325 MG TABLET PO PRN (23:30)
[2020-09-04] MEDS ORDERED: TEMAZEPAM 15 MG CAPSULE PO PRN (23:30)
[2020-09-04] MEDS ORDERED: METHOCARBAMOL 500 MG TABLET PO PRN (23:30)
[2020-09-04] MEDS ORDERED: DOCUSATE 100 MG CAPSULE PO PRN (23:30)
[2020-09-04] MEDS ORDERED: GUAIFENESIN/DM 200-20MG, 10ML UDC PO PRN (23:30)
[2020-09-04] MEDS ORDERED: hydrALAzine 20 MG/ML, 1ML IVPush PRN (23:30)
[2020-09-04] MEDS ORDERED: ONDANSETRON 2MG/ML, 2ML IVPush PRN (23:30)
[2020-09-04] MEDS ORDERED: LOPERAMIDE 2 MG CAPSULE PO PRN (23:30)
[2020-09-04] MEDS: SODIUM CHLORIDE 0.9% 1,000 ML IV SCH (23:40)
[2020-09-04] MEDS: HEPARIN 5,000 UNITS/ML, 1ML SQ SCH (23:40)
[2020-09-04] MEDS: SUCRALFATE 1 GM TABLET PO SCH (23:40)
[2020-09-04] MEDS: QUETIAPINE 200 MG TABLET PO SCH (23:40)
[2020-09-05 02:11] VITALS: BP 107/64
[2020-09-05] MEDS: SUCRALFATE 1 GM TABLET PO SCH (05:43)
[2020-09-05 05:44] LABS: BASOPHILS % (AUTO) 2 % (0-1); EOSINOPHILS % (AUTO) 3 % (1-7); LYMPHOCYTES % (AUTO) 36 % (22-44); MEAN CORPUSCULAR HEMOGLOBIN 28.3 pg (27.0-34.8); MEAN CORPUSCULAR HGB CONC 32.6 g/dL (32.4-35.8); MEAN PLATELET VOLUME 7.7 fL (7.4-10.4); MONOCYTES % (AUTO) 8 % (2-9); NEUTROPHILS % (AUTO) 51 % (42-75); PLATELET COUNT 235 x10^3/uL (130-400); RED CELL DISTRIBUTION WIDTH 16.4 % (9.6-15.2)
[2020-09-05 05:59] LABS: CALCIUM 8.4 mg/dL (8.5-10.1)
[2020-09-05 06:06] LABS: ANION GAP 7 mmol/L (5-15); CHLORIDE 111 mmol/L (98-107)
[2020-09-05 06:51] VITALS: BP 108/60
[2020-09-05] MEDS: SODIUM CHLORIDE 0.9% 1,000 ML IV SCH ×2 (09:07→16:10)
[2020-09-05] MEDS: HEPARIN 5,000 UNITS/ML, 1ML SQ SCH ×3 (09:08→23:05)
[2020-09-05 13:34] VITALS: BP 109/71
[2020-09-05 19:16] VITALS: BP 100/64
[2020-09-05] MEDS: QUETIAPINE 200 MG TABLET PO SCH (20:33)
[2020-09-05] MEDS ORDERED: CEFTRIAXONE 2 GM in DEXTROSE 5% 50 ML IVPB SCH (21:00)
[2020-09-06 00:42] VITALS: BP 133/77
[2020-09-06] MEDS: SODIUM CHLORIDE 0.9% 1,000 ML IV SCH (02:36)
[2020-09-06] MEDS ORDERED: CIPR500T87 PO ×2 (07:29)
[2020-09-06] MEDS: HEPARIN 5,000 UNITS/ML, 1ML SQ SCH ×3 (08:10→22:20)
[2020-09-06 09:41] VITALS: BP 132/76
[2020-09-06 13:10] VITALS: BP 134/78
[2020-09-06] MEDS: OXYcodone IR 5MG TABLET PO PRN ×2 (14:31→20:38)
[2020-09-06 19:36] VITALS: BP 118/73
[2020-09-06] MEDS: QUETIAPINE 200 MG TABLET PO SCH (20:38)
[2020-09-06] MEDS: CIPROFLOXACIN 500 MG TABLET PO SCH (20:38)
[2020-09-07 01:03] VITALS: BP 130/63
[2020-09-07] MEDS: CIPROFLOXACIN 500 MG TABLET PO SCH ×2 (08:17→20:32)
[2020-09-07] MEDS: OXYcodone IR 5MG TABLET PO PRN ×2 (08:17→19:17)
[2020-09-07] MEDS: HEPARIN 5,000 UNITS/ML, 1ML SQ SCH ×2 (08:17→16:38)
[2020-09-07 08:22] VITALS: BP 134/78
[2020-09-07 14:31] VITALS: BP 122/76
[2020-09-07 20:29] VITALS: BP 125/68
[2020-09-07] MEDS: QUETIAPINE 200 MG TABLET PO SCH (20:32)
[2020-09-08 00:03] VITALS: BP 91/58
[2020-09-08] MEDS: HEPARIN 5,000 UNITS/ML, 1ML SQ SCH ×4 (00:07→23:54)
[2020-09-08 06:46] VITALS: BP 138/80
[2020-09-08] MEDS: CIPROFLOXACIN 500 MG TABLET PO SCH ×2 (08:06→21:26)
[2020-09-08 12:39] VITALS: BP 148/81
[2020-09-08] MEDS: OXYcodone IR 5MG TABLET PO PRN (16:31)
[2020-09-08 21:07] VITALS: BP 134/77
[2020-09-08] MEDS: QUETIAPINE 200 MG TABLET PO SCH (21:26)
[2020-09-09 01:28] VITALS: BP 108/72
[2020-09-09 07:06] VITALS: BP 136/88
[2020-09-09] MEDS: CIPROFLOXACIN 500 MG TABLET PO SCH ×2 (08:08→20:57)
[2020-09-09] MEDS: HEPARIN 5,000 UNITS/ML, 1ML SQ SCH ×2 (08:08→16:00)
[2020-09-09] MEDS: HYDROXYZINE PAMOATE 50MG CAP PO SCH ×3 (12:22→21:03)
[2020-09-09] MEDS: OXYcodone IR 5MG TABLET PO PRN ×2 (12:23→21:03)
[2020-09-09 12:44] VITALS: BP 114/73
[2020-09-09 20:37] VITALS: BP 126/77
[2020-09-09] MEDS: QUETIAPINE 200 MG TABLET PO SCH (20:57)
[2020-09-10] MEDS: HEPARIN 5,000 UNITS/ML, 1ML SQ SCH ×3 (00:04→15:52)
[2020-09-10 00:07] VITALS: BP 126/63
[2020-09-10 07:24] VITALS: BP 120/77
[2020-09-10] MEDS: HYDROXYZINE PAMOATE 50MG CAP PO SCH ×3 (07:56→21:04)
[2020-09-10] MEDS: CIPROFLOXACIN 500 MG TABLET PO SCH ×2 (07:57→21:04)
[2020-09-10] MEDS: FLUOXETINE HCL 20 MG CAPSULE PO SCH (07:57)
[2020-09-10] MEDS: OXYcodone IR 5MG TABLET PO PRN (09:22)
[2020-09-10 13:03] VITALS: BP 106/70
[2020-09-10 19:11] VITALS: BP 116/71
[2020-09-10] MEDS: QUETIAPINE 200 MG TABLET PO SCH (21:04)
[2020-09-11 01:33] VITALS: BP 96/56
[2020-09-11 08:26] VITALS: BP 121/76
[2020-09-11] MEDS: HEPARIN 5,000 UNITS/ML, 1ML SQ SCH ×3 (09:20→18:41)
[2020-09-11] MEDS: CIPROFLOXACIN 500 MG TABLET PO SCH ×2 (09:21→21:00)
[2020-09-11] MEDS: FLUOXETINE HCL 20 MG CAPSULE PO SCH (09:23)
[2020-09-11] MEDS: HYDROXYZINE PAMOATE 50MG CAP PO SCH ×3 (09:24→21:00)
[2020-09-11] MEDS ORDERED: AMLO10TA4 PO (14:07)
[2020-09-11] MEDS ORDERED: HYDR50CA PO (14:07)
[2020-09-11] MEDS ORDERED: FLUT1BLS INH (14:07)
[2020-09-11] MEDS ORDERED: FLUO40CA2 PO (14:07)
[2020-09-11] MEDS ORDERED: OMEP-110 PO (14:07)
[2020-09-11] MEDS ORDERED: QUET200T79 PO (14:07)
[2020-09-11 14:13] VITALS: BP 107/69
[2020-09-11 19:46] VITALS: BP 128/76
[2020-09-11] MEDS: QUETIAPINE 200 MG TABLET PO SCH (21:02)
[2020-09-12] MEDS: HEPARIN 5,000 UNITS/ML, 1ML SQ SCH ×3 (00:17→16:09)
[2020-09-12 00:54] VITALS: BP 110/68
[2020-09-12 07:33] VITALS: BP 111/59
[2020-09-12] MEDS: FLUOXETINE HCL 20 MG CAPSULE PO SCH (08:10)
[2020-09-12] MEDS: HYDROXYZINE PAMOATE 50MG CAP PO SCH ×3 (08:11→21:05)
[2020-09-12] MEDS: CIPROFLOXACIN 500 MG TABLET PO SCH (08:11)
[2020-09-12 14:19] VITALS: BP 143/79
[2020-09-12 20:35] VITALS: BP 120/75
[2020-09-12] MEDS: QUETIAPINE 200 MG TABLET PO SCH (21:05)
[2020-09-13 00:29] VITALS: BP 114/68
[2020-09-13] MEDS: FLUOXETINE HCL 20 MG CAPSULE PO SCH (08:05)
[2020-09-13] MEDS: HYDROXYZINE PAMOATE 50MG CAP PO SCH ×3 (08:05→20:58)
[2020-09-13] MEDS: HEPARIN 5,000 UNITS/ML, 1ML SQ SCH ×3 (08:05→16:07)
[2020-09-13 08:57] VITALS: BP 128/70
[2020-09-13 15:53] VITALS: BP 134/76
[2020-09-13] MEDS: QUETIAPINE 200 MG TABLET PO SCH (20:59)
[2020-09-13 21:10] VITALS: BP 127/77
[2020-09-13] MEDS: CALCIUM CARBONATE 500 MG TAB.CHEW PO PRN (23:14)
[2020-09-14 02:09] VITALS: BP 86/52
[2020-09-14 02:38] VITALS: BP 101/62
[2020-09-14 06:53] VITALS: BP 134/72
[2020-09-14] MEDS: FLUOXETINE HCL 20 MG CAPSULE PO SCH (08:21)
[2020-09-14] MEDS: HEPARIN 5,000 UNITS/ML, 1ML SQ SCH ×4 (08:21→23:35)
[2020-09-14] MEDS: HYDROXYZINE PAMOATE 50MG CAP PO SCH ×3 (08:21→20:14)
[2020-09-14 12:58] VITALS: BP 124/61
[2020-09-14 19:02] VITALS: BP 123/52
[2020-09-14] MEDS: OXYcodone IR 5MG TABLET PO PRN (20:14)
[2020-09-14] MEDS: QUETIAPINE 200 MG TABLET PO SCH (20:14)
[2020-09-14] MEDS: CALCIUM CARBONATE 500 MG TAB.CHEW PO PRN (21:07)
[2020-09-14 23:36] VITALS: BP 112/74
[2020-09-15 07:25] VITALS: BP 111/72
[2020-09-15] MEDS: HYDROXYZINE PAMOATE 50MG CAP PO SCH ×3 (09:25→20:27)
[2020-09-15] MEDS: FLUOXETINE HCL 20 MG CAPSULE PO SCH (09:25)
[2020-09-15] MEDS: HEPARIN 5,000 UNITS/ML, 1ML SQ SCH ×3 (09:26→23:21)
[2020-09-15 13:37] VITALS: BP 103/63
[2020-09-15 18:32] VITALS: BP 108/47
[2020-09-15] MEDS: QUETIAPINE 200 MG TABLET PO SCH (20:27)
[2020-09-15] MEDS: CALCIUM CARBONATE 500 MG TAB.CHEW PO PRN (20:27)
[2020-09-15] MEDS: OXYcodone IR 5MG TABLET PO PRN (20:27)
[2020-09-16 00:42] VITALS: BP 122/74
[2020-09-16 07:24] VITALS: BP 126/76
[2020-09-16] MEDS: HEPARIN 5,000 UNITS/ML, 1ML SQ SCH ×3 (08:15→23:59)
[2020-09-16] MEDS: FLUOXETINE HCL 20 MG CAPSULE PO SCH (08:16)
[2020-09-16] MEDS: HYDROXYZINE PAMOATE 50MG CAP PO SCH ×3 (08:16→21:15)
[2020-09-16 13:15] VITALS: BP 111/55
[2020-09-16 19:17] VITALS: BP 136/74
[2020-09-16] MEDS: QUETIAPINE 200 MG TABLET PO SCH (21:15)
[2020-09-17 00:58] VITALS: BP 117/73
[2020-09-17 05:40] LABS: ANION GAP 4 mmol/L (5-15); CALCIUM 9.1 mg/dL (8.5-10.1); CHLORIDE 110 mmol/L (98-107); CREATININE 1.59 mg/dL (0.55-1.02)
[2020-09-17 07:54] VITALS: BP 133/80
[2020-09-17] MEDS: HEPARIN 5,000 UNITS/ML, 1ML SQ SCH ×2 (08:04→15:21)
[2020-09-17] MEDS: FLUOXETINE HCL 20 MG CAPSULE PO SCH (08:04)
[2020-09-17] MEDS: HYDROXYZINE PAMOATE 50MG CAP PO SCH ×3 (08:05→21:29)
[2020-09-17] MEDS: CALCIUM CARBONATE 500 MG TAB.CHEW PO PRN ×2 (08:19→15:21)
[2020-09-17] MEDS: OXYcodone IR 5MG TABLET PO PRN ×2 (08:19→15:22)
[2020-09-17 08:42] LABS: BASOPHILS % (AUTO) 1 % (0-1); EOSINOPHILS % (AUTO) 4 % (1-7); LYMPHOCYTES % (AUTO) 29 % (22-44); MEAN CORPUSCULAR HEMOGLOBIN 28.4 pg (27.0-34.8); MEAN CORPUSCULAR HGB CONC 32.9 g/dL (32.4-35.8); MEAN PLATELET VOLUME 8.6 fL (7.4-10.4); MONOCYTES % (AUTO) 9 % (2-9); NEUTROPHILS % (AUTO) 57 % (42-75); PLATELET COUNT 227 x10^3/uL (130-400); RED BLOOD COUNT 4.09 x10^6/uL (3.82-5.3); RED CELL DISTRIBUTION WIDTH 16.5 % (9.6-15.2)
[2020-09-17 13:12] VITALS: BP 114/72
[2020-09-17 18:54] VITALS: BP 105/65
[2020-09-17] MEDS: QUETIAPINE 200 MG TABLET PO SCH (21:30)
[2020-09-18 00:26] VITALS: BP 118/75
[2020-09-18] MEDS: HEPARIN 5,000 UNITS/ML, 1ML SQ SCH ×2 (00:30→08:24)
[2020-09-18 01:05] LABS: MICROSCOPIC AUTO
[2020-09-18 05:57] LABS: BASOPHILS % (AUTO) 2 % (0-1); EOSINOPHILS % (AUTO) 5 % (1-7); LYMPHOCYTES % (AUTO) 44 % (22-44); MEAN CORPUSCULAR HEMOGLOBIN 28.3 pg (27.0-34.8); MEAN CORPUSCULAR HGB CONC 32.9 g/dL (32.4-35.8); MEAN PLATELET VOLUME 7.6 fL (7.4-10.4); MONOCYTES % (AUTO) 9 % (2-9); NEUTROPHILS % (AUTO) 40 % (42-75); PLATELET COUNT 250 x10^3/uL (130-400); RED BLOOD COUNT 4.12 x10^6/uL (3.82-5.3); RED CELL DISTRIBUTION WIDTH 16.6 % (9.6-15.2)
[2020-09-18 06:09] LABS: CALCIUM 9.1 mg/dL (8.5-10.1); CHLORIDE 106 mmol/L (98-107)
[2020-09-18 06:15] LABS: ALANINE AMINOTRANSFERASE 51 U/L (12-78); ALKALINE PHOSPHATASE 81 U/L (45-117); ANION GAP 3 mmol/L (5-15); BILIRUBIN,TOTAL 0.3 mg/dL (0.2-1.0); CREATININE 1.72 mg/dL (0.55-1.02); TOTAL PROTEIN 7.1 g/dL (6.4-8.2)
[2020-09-18 08:05] VITALS: BP 143/77
[2020-09-18] MEDS: HYDROXYZINE PAMOATE 50MG CAP PO SCH (08:23)
[2020-09-18] MEDS: FLUOXETINE HCL 20 MG CAPSULE PO SCH (08:24)
[2020-09-18] MEDS ORDERED: OXYC5TAB98 PO (11:31)
== END 2020-09-18 12:56 | disposition home or self-care (01) | DRG 690 ==
LOC: ED 20:42 → EDIP 21:00 → 3N 22:07
PROVIDERS: ADMIT Internal Medicine; ATTEND Internal Medicine
DX: N10 Acute pyelonephritis (principal); E87.1 Hypo-osmolality and hyponatremia; N18.30 Chronic kidney disease, stage 3 unspecified; N17.9 Acute kidney failure, unspecified; B96.1 Klebsiella pneumoniae [K. pneumoniae] as the cause of diseases classified elsewhere; B96.89 Other specified bacterial agents as the cause of diseases classified elsewhere; E66.9 Obesity, unspecified; Z68.32 Body mass index [BMI] 32.0-32.9, adult; E86.0 Dehydration; E87.8 Other disorders of electrolyte and fluid balance, not elsewhere classified; F10.10 Alcohol abuse, uncomplicated; F12.90 Cannabis use, unspecified, uncomplicated; F17.210 Nicotine dependence, cigarettes, uncomplicated; F32.9 Major depressive disorder, single episode, unspecified; F41.9 Anxiety disorder, unspecified; G89.4 Chronic pain syndrome; I12.9 Hypertensive chronic kidney disease with stage 1 through stage 4 chronic kidney disease, or unspecified chronic kidney disease; J43.9 Emphysema, unspecified; Z85.51 Personal history of malignant neoplasm of bladder; Z85.528 Personal history of other malignant neoplasm of kidney; Z90.5 Acquired absence of kidney; Z90.710 Acquired absence of both cervix and uterus; Z99.81 Dependence on supplemental oxygen; Z90.49 Acquired absence of other specified parts of digestive tract
CPT/HCPCS: 36415; 76770; 80048; 80053; 81001; 83690; 83735; 84100; 85025; 87077; 87086; 87186; 93005; 96374; 96375; G0378; J0696; J1644; J7030; J7040

== ENCOUNTER 2020-09-20 11:13 | Inpatient (IN) | payer OTHER ==
[~2020-09-20] VITALS: Ht 157.5 cm; Wt 74.9 kg
[~2020-09-20 11:13] MED LIST changes: +AMLO-210 PO; +CIPR500T87 PO; +LOPE2CAP PO; +OXYC5TAB98 PO; +QUET200T79 PO; +SUCR1TAB PO
--- NOTE | 2020-09-20 11:15 | NUR ---
pt AURELIANO VERMA [facility] c/o "new onset confusion". pt staets that she "cannot remember yesterday'. pt statesd that she knows that she did not take her medications yesterday and was able to articulate all of her activities from yesterday to the [facility] staff TE[employer]. pt states that she did not want the meals on wheels that she was given because she didn't like ot. pt states that she "feels confused" but is able to answer questions and follow commands appropriatley. no facila droop noted. no difficulty breathing speaking or swallowing. [place] and is ambulatory. pt is able to describe the palce that she is staying in and that she is sharing a room with three other women. states that shdid not have breakfast this morning and that she is hungry. denies pain or injury.
--- NOTE | 2020-09-20 11:45 | NUR ---
no changes. pt resting calmly on gurney watching TV
--- NOTE | 2020-09-20 12:15 | NUR ---
PO snacks have been given per MD DOMÍNGUEZ. meal tray ordered
[2020-09-20 13:10] LABS: BASOPHILS % (AUTO) 1 % (0-1); EOSINOPHILS % (AUTO) 2 % (1-7); LYMPHOCYTES % (AUTO) 22 % (22-44); MEAN CORPUSCULAR HEMOGLOBIN 28.6 pg (27.0-34.8); MEAN CORPUSCULAR HGB CONC 33.4 g/dL (32.4-35.8); MEAN PLATELET VOLUME 7.4 fL (7.4-10.4); MONOCYTES % (AUTO) 6 % (2-9); NEUTROPHILS % (AUTO) 68 % (42-75); PLATELET COUNT 309 x10^3/uL (130-400); RED BLOOD COUNT 4.69 x10^6/uL (3.82-5.3)
[2020-09-20 13:19] LABS: ALBUMIN 3.6 g/dL (3.4-5.0); ANION GAP 4 mmol/L (5-15); CALCIUM 9.5 mg/dL (8.5-10.1); CHLORIDE 109 mmol/L (98-107); CREATININE 1.73 mg/dL (0.55-1.02)
--- NOTE | 2020-09-20 14:00 | NUR ---
meal tray delivered. pt has been resting in position of comfort watching TV. no new c/o. no apparent distress
--- NOTE | 2020-09-20 15:06 | NUR ---
pt resting in position of comfort. dozing intermittently. lights dimmed and warm blankets given for comfort. pt updated on POC
--- NOTE | 2020-09-20 15:22 | NUR ---
report to Autumn SOOD for lunch
--- NOTE | 2020-09-20 15:48 | NUR ---
Assistance provided to bathroom. PT back resting n bed, call light in reach.
[2020-09-20] MEDS ORDERED: SODIUM CHLORIDE FLUSH 10ML SYR IVF PRN (16:30)
--- NOTE | 2020-09-20 16:35 | NUR ---
THROUGHPUT: [facility] ([facility]) DECLINED PT TRANSFER, [facility] FORM FAXED & PLACED IN FOLDER WITH FAX CONFIRMATION, EMAIL ALSO SENT.
--- NOTE | 2020-09-20 16:49 | NUR ---
bed assignment recieved. report called to Siria SOOD
--- NOTE | 2020-09-20 17:35 | NUR ---
patient to floor via rbristol
[2020-09-20] MEDS ORDERED: POLYETHYLENE GLYCOL 17 GM PACKET PO PRN (18:00)
[2020-09-20] MEDS ORDERED: ACETAMINOPHEN 325 MG TABLET PO PRN (18:00)
[2020-09-20] MEDS ORDERED: OXYcodone/APAP 5/325MG TABLET PO PRN (18:00)
[2020-09-20 18:54] VITALS: BP 124/67
[2020-09-20] MEDS ORDERED: LOPERAMIDE 2 MG CAPSULE PO PRN (19:00)
[2020-09-20] MEDS: QUETIAPINE 200 MG TABLET PO SCH (20:07)
[2020-09-20] MEDS: HEPARIN 5,000 UNITS/ML, 1ML SQ SCH (20:08)
[2020-09-20] MEDS: HYDROXYZINE PAMOATE 50MG CAP PO SCH (20:08)
[2020-09-20 21:22] LABS: MICROSCOPIC INDICATED
[2020-09-20] MEDS ORDERED: TEMAZEPAM 15 MG CAPSULE PO ONE (22:30)
[2020-09-21 00:46] VITALS: BP 113/63
[2020-09-21] MEDS: HEPARIN 5,000 UNITS/ML, 1ML SQ SCH ×3 (05:17→20:44)
[2020-09-21 05:56] LABS: BASOPHILS % (AUTO) 2 % (0-1); EOSINOPHILS % (AUTO) 4 % (1-7); LYMPHOCYTES % (AUTO) 34 % (22-44); MEAN CORPUSCULAR HEMOGLOBIN 27.9 pg (27.0-34.8); MEAN CORPUSCULAR HGB CONC 32.3 g/dL (32.4-35.8); MEAN PLATELET VOLUME 7.6 fL (7.4-10.4); MONOCYTES % (AUTO) 8 % (2-9); NEUTROPHILS % (AUTO) 53 % (42-75); PLATELET COUNT 272 x10^3/uL (130-400); RED BLOOD COUNT 4.39 x10^6/uL (3.82-5.3); RED CELL DISTRIBUTION WIDTH 15.9 % (9.6-15.2)
[2020-09-21 06:12] LABS: CHLORIDE 110 mmol/L (98-107)
[2020-09-21 06:34] LABS: ANION GAP 8 mmol/L (5-15); CALCIUM 9.2 mg/dL (8.5-10.1); CREATININE 2.06 mg/dL (0.55-1.02)
[2020-09-21 08:19] VITALS: BP 145/74
[2020-09-21] MEDS: SENNA/DOCUSATE TABLET PO SCH ×2 (08:21→08:23)
[2020-09-21] MEDS: HYDROXYZINE PAMOATE 50MG CAP PO SCH ×3 (08:21→20:44)
[2020-09-21] MEDS: SODIUM CHLORIDE 0.45% 1,000 ML IV SCH ×2 (08:21→17:18)
[2020-09-21] MEDS: QUETIAPINE 200 MG TABLET PO SCH ×2 (08:21→20:44)
[2020-09-21] MEDS: FLUOXETINE HCL 20 MG CAPSULE PO SCH (08:21)
[2020-09-21] MEDS: AMLODIPINE 10 MG TAB PO SCH (08:22)
[2020-09-21] MEDS: FLUTICASONE/VILANTEROL 200-25MCG/INH INH SCH (10:02)
[2020-09-21 12:17] VITALS: BP 127/82
[2020-09-21 20:48] VITALS: BP 119/72
[2020-09-21 21:09] VITALS: BP 148/74
[2020-09-21] MEDS ORDERED: TEMAZEPAM 15 MG CAPSULE PO ONE (23:30)
[2020-09-22 01:28] VITALS: BP 119/68
[2020-09-22] MEDS: HEPARIN 5,000 UNITS/ML, 1ML SQ SCH ×3 (05:28→21:15)
[2020-09-22] MEDS: SODIUM CHLORIDE 0.45% 1,000 ML IV SCH ×3 (05:28→16:04)
[2020-09-22 05:58] LABS: BASOPHILS % (AUTO) 2 % (0-1); EOSINOPHILS % (AUTO) 6 % (1-7); LYMPHOCYTES % (AUTO) 42 % (22-44); MEAN CORPUSCULAR HEMOGLOBIN 28.1 pg (27.0-34.8); MEAN CORPUSCULAR HGB CONC 32.7 g/dL (32.4-35.8); MEAN PLATELET VOLUME 7.3 fL (7.4-10.4); MONOCYTES % (AUTO) 8 % (2-9); NEUTROPHILS % (AUTO) 43 % (42-75); PLATELET COUNT 248 x10^3/uL (130-400); RED BLOOD COUNT 4.21 x10^6/uL (3.82-5.3); RED CELL DISTRIBUTION WIDTH 15.5 % (9.6-15.2)
[2020-09-22] MEDS: OXYcodone IR 5MG TABLET PO PRN (06:07)
[2020-09-22 06:38] LABS: ANION GAP 5 mmol/L (5-15); CALCIUM 8.5 mg/dL (8.5-10.1); CHLORIDE 111 mmol/L (98-107)
[2020-09-22 06:40] LABS: CREATININE 1.56 mg/dL (0.55-1.02)
[2020-09-22 07:07] VITALS: BP 117/75
[2020-09-22] MEDS: HYDROXYZINE PAMOATE 50MG CAP PO SCH ×3 (08:49→21:15)
[2020-09-22] MEDS: FLUOXETINE HCL 20 MG CAPSULE PO SCH (08:49)
[2020-09-22] MEDS: AMLODIPINE 10 MG TAB PO SCH (08:49)
[2020-09-22] MEDS: SENNA/DOCUSATE TABLET PO SCH (08:49)
[2020-09-22] MEDS: QUETIAPINE 200 MG TABLET PO SCH ×2 (08:49→21:16)
[2020-09-22] MEDS: FLUTICASONE/VILANTEROL 200-25MCG/INH INH SCH (09:10)
[2020-09-22 13:26] VITALS: BP 135/74
[2020-09-22 19:00] VITALS: BP 141/80
[2020-09-22] MEDS: CEFTRIAXONE 2 GM in DEXTROSE 5% 50 ML IVPB SCH (21:30)
[2020-09-23 00:47] VITALS: BP 131/67
[2020-09-23 05:25] LABS: BASOPHILS % (AUTO) 3 % (0-1); EOSINOPHILS % (AUTO) 7 % (1-7); LYMPHOCYTES % (AUTO) 42 % (22-44); MEAN CORPUSCULAR HEMOGLOBIN 28.5 pg (27.0-34.8); MEAN CORPUSCULAR HGB CONC 33.1 g/dL (32.4-35.8); MEAN PLATELET VOLUME 7.5 fL (7.4-10.4); MONOCYTES % (AUTO) 7 % (2-9); NEUTROPHILS % (AUTO) 41 % (42-75); PLATELET COUNT 250 x10^3/uL (130-400)
[2020-09-23 05:36] LABS: ANION GAP 5 mmol/L (5-15); CALCIUM 8.1 mg/dL (8.5-10.1); CHLORIDE 111 mmol/L (98-107); CREATININE 1.46 mg/dL (0.55-1.02)
[2020-09-23] MEDS: LEVOTHYROXINE 25 MCG TABLET PO SCH (05:55)
[2020-09-23] MEDS: HEPARIN 5,000 UNITS/ML, 1ML SQ SCH ×3 (05:55→20:05)
[2020-09-23] MEDS: OXYcodone IR 5MG TABLET PO PRN (05:58)
[2020-09-23] MEDS ORDERED: SODIUM CHLORIDE 0.45% 1,000 ML IV SCH (07:00)
[2020-09-23 09:15] VITALS: BP 119/73
[2020-09-23] MEDS: AMLODIPINE 10 MG TAB PO SCH (09:45)
[2020-09-23] MEDS: FLUOXETINE HCL 20 MG CAPSULE PO SCH (09:45)
[2020-09-23] MEDS: HYDROXYZINE PAMOATE 50MG CAP PO SCH ×3 (09:45→20:05)
[2020-09-23] MEDS: FLUTICASONE/VILANTEROL 200-25MCG/INH INH SCH (09:46)
[2020-09-23] MEDS: QUETIAPINE 200 MG TABLET PO SCH ×2 (09:46→20:05)
[2020-09-23] MEDS: SENNA/DOCUSATE TABLET PO SCH (09:48)
[2020-09-23] MEDS ORDERED: MAGNESIUM SULFATE 1 GM in SODIUM CHLORIDE 0.9% 50 ML IV ONE (11:00)
[2020-09-23 14:20] VITALS: BP 143/70
[2020-09-23] MEDS: SODIUM CHLORIDE 0.45% 1,000 ML IV SCH (15:27)
[2020-09-23 18:24] VITALS: BP 159/84
[2020-09-23] MEDS: CEFTRIAXONE 2 GM in DEXTROSE 5% 50 ML IVPB SCH (20:05)
[2020-09-24 01:16] VITALS: BP_SYST 107; BP_SYST 155; BP_DIAS 68; BP_DIAS 82
[2020-09-24] MEDS: HEPARIN 5,000 UNITS/ML, 1ML SQ SCH ×3 (05:17→19:23)
[2020-09-24] MEDS: LEVOTHYROXINE 25 MCG TABLET PO SCH ×2 (05:17→08:30)
[2020-09-24 05:28] LABS: CHLORIDE 112 mmol/L (98-107)
[2020-09-24 05:34] LABS: ANION GAP 6 mmol/L (5-15); CALCIUM 8.1 mg/dL (8.5-10.1); CREATININE 1.51 mg/dL (0.55-1.02)
[2020-09-24 07:48] VITALS: BP 142/84
[2020-09-24] MEDS: SENNA/DOCUSATE TABLET PO SCH (09:00)
[2020-09-24] MEDS: FLUTICASONE/VILANTEROL 200-25MCG/INH INH SCH (09:13)
[2020-09-24] MEDS: HYDROXYZINE PAMOATE 50MG CAP PO SCH ×3 (09:14→19:23)
[2020-09-24] MEDS: FLUOXETINE HCL 20 MG CAPSULE PO SCH (09:14)
[2020-09-24] MEDS: AMLODIPINE 10 MG TAB PO SCH (09:15)
[2020-09-24] MEDS: QUETIAPINE 200 MG TABLET PO SCH ×2 (09:15→19:23)
[2020-09-24 13:20] VITALS: BP 143/93
[2020-09-24] MEDS: CALCIUM CARBONATE 500 MG TAB.CHEW PO PRN (17:05)
[2020-09-24 18:55] VITALS: BP 147/93
[2020-09-24] MEDS: CEFTRIAXONE 2 GM in DEXTROSE 5% 50 ML IVPB SCH (19:23)
[2020-09-25 00:56] VITALS: BP 100/58
[2020-09-25] MEDS: HEPARIN 5,000 UNITS/ML, 1ML SQ SCH ×3 (05:34→21:24)
[2020-09-25] MEDS: LEVOTHYROXINE 25 MCG TABLET PO SCH ×2 (05:35)
[2020-09-25 07:20] VITALS: BP 144/70
[2020-09-25] MEDS: ACETAMINOPHEN 325 MG TABLET PO PRN ×2 (08:18→14:32)
[2020-09-25] MEDS: FLUTICASONE/VILANTEROL 200-25MCG/INH INH SCH (08:19)
[2020-09-25] MEDS: FLUOXETINE HCL 20 MG CAPSULE PO SCH (08:19)
[2020-09-25] MEDS: HYDROXYZINE PAMOATE 50MG CAP PO SCH ×3 (08:19→21:23)
[2020-09-25] MEDS: SENNA/DOCUSATE TABLET PO SCH (08:19)
[2020-09-25] MEDS: AMLODIPINE 10 MG TAB PO SCH (08:20)
[2020-09-25] MEDS: QUETIAPINE 200 MG TABLET PO SCH ×2 (08:20→21:23)
[2020-09-25 14:09] VITALS: BP 112/74
[2020-09-25 21:30] VITALS: BP 130/68
[2020-09-25] MEDS: CALCIUM CARBONATE 500 MG TAB.CHEW PO PRN (21:38)
[2020-09-25] MEDS: OXYcodone IR 5MG TABLET PO PRN (21:38)
[2020-09-26 02:28] VITALS: BP 108/67
[2020-09-26] MEDS: LEVOTHYROXINE 25 MCG TABLET PO SCH (05:35)
[2020-09-26] MEDS: HEPARIN 5,000 UNITS/ML, 1ML SQ SCH ×3 (05:36→19:34)
[2020-09-26 07:21] VITALS: BP 124/77
[2020-09-26] MEDS: AMLODIPINE 10 MG TAB PO SCH (08:15)
[2020-09-26] MEDS: SENNA/DOCUSATE TABLET PO SCH (08:15)
[2020-09-26] MEDS: FLUOXETINE HCL 20 MG CAPSULE PO SCH (08:15)
[2020-09-26] MEDS: QUETIAPINE 200 MG TABLET PO SCH ×2 (08:16→19:34)
[2020-09-26] MEDS: FLUTICASONE/VILANTEROL 200-25MCG/INH INH SCH (08:20)
[2020-09-26] MEDS ORDERED: HYDROXYZINE PAMOATE 50MG CAP PO SCH (09:00)
[2020-09-26] MEDS ORDERED: SENN-211 PO (11:36)
[2020-09-26] MEDS ORDERED: HYDR50CA PO (11:36)
[2020-09-26] MEDS ORDERED: LEVO25TA2 PO (11:36)
[2020-09-26] MEDS: OXYcodone IR 5MG TABLET PO PRN ×2 (12:39→19:35)
[2020-09-26 12:56] VITALS: BP 125/81
[2020-09-26] MEDS: HYDROXYZINE PAMOATE 25MG CAP PO SCH ×2 (15:16→19:34)
[2020-09-26] MEDS: CALCIUM CARBONATE 500 MG TAB.CHEW PO PRN (15:16)
[2020-09-26 19:40] VITALS: BP 118/62
[2020-09-27 02:53] VITALS: BP 107/68
[2020-09-27] MEDS: LEVOTHYROXINE 25 MCG TABLET PO SCH (05:40)
[2020-09-27] MEDS: HEPARIN 5,000 UNITS/ML, 1ML SQ SCH ×3 (05:40→20:49)
[2020-09-27] MEDS: AMLODIPINE 10 MG TAB PO SCH (09:11)
[2020-09-27] MEDS: QUETIAPINE 200 MG TABLET PO SCH ×2 (09:11→20:48)
[2020-09-27] MEDS: FLUOXETINE HCL 20 MG CAPSULE PO SCH (09:11)
[2020-09-27] MEDS: SENNA/DOCUSATE TABLET PO SCH (09:11)
[2020-09-27] MEDS: FLUTICASONE/VILANTEROL 200-25MCG/INH INH SCH (09:11)
[2020-09-27] MEDS: HYDROXYZINE PAMOATE 25MG CAP PO SCH ×3 (09:11→20:49)
[2020-09-27 13:39] VITALS: BP 110/70
[2020-09-27] MEDS: OXYcodone IR 5MG TABLET PO PRN (14:28)
[2020-09-27] MEDS: ACETAMINOPHEN 325 MG TABLET PO PRN (20:49)
[2020-09-27 20:51] VITALS: BP 114/67
[2020-09-28 01:56] VITALS: BP 117/55
[2020-09-28] MEDS: HEPARIN 5,000 UNITS/ML, 1ML SQ SCH ×3 (05:20→20:15)
[2020-09-28] MEDS: LEVOTHYROXINE 50 MCG TABLET PO SCH (05:21)
[2020-09-28 06:49] VITALS: BP 103/65
[2020-09-28] MEDS: FLUOXETINE HCL 20 MG CAPSULE PO SCH (08:26)
[2020-09-28] MEDS: SENNA/DOCUSATE TABLET PO SCH (08:26)
[2020-09-28] MEDS: AMLODIPINE 10 MG TAB PO SCH (08:26)
[2020-09-28] MEDS: HYDROXYZINE PAMOATE 25MG CAP PO SCH ×2 (08:27→20:14)
[2020-09-28] MEDS: QUETIAPINE 200 MG TABLET PO SCH ×2 (08:27→20:14)
[2020-09-28] MEDS: FLUTICASONE/VILANTEROL 200-25MCG/INH INH SCH (08:28)
[2020-09-28 12:06] VITALS: BP 121/75
[2020-09-28] MEDS: CALCIUM CARBONATE 500 MG TAB.CHEW PO PRN (12:09)
[2020-09-28] MEDS: OXYcodone IR 5MG TABLET PO PRN (16:30)
[2020-09-28 19:41] VITALS: BP 121/83
[2020-09-29 01:33] VITALS: BP 133/69
[2020-09-29] MEDS: CALCIUM CARBONATE 500 MG TAB.CHEW PO PRN ×3 (01:36→20:30)
[2020-09-29] MEDS: LEVOTHYROXINE 50 MCG TABLET PO SCH (05:11)
[2020-09-29] MEDS: HEPARIN 5,000 UNITS/ML, 1ML SQ SCH ×3 (05:11→20:31)
[2020-09-29 07:54] VITALS: BP 131/70
[2020-09-29] MEDS: FLUTICASONE/VILANTEROL 200-25MCG/INH INH SCH (08:14)
[2020-09-29] MEDS: QUETIAPINE 200 MG TABLET PO SCH ×2 (08:15→20:30)
[2020-09-29] MEDS: FLUOXETINE HCL 20 MG CAPSULE PO SCH (08:15)
[2020-09-29] MEDS: HYDROXYZINE PAMOATE 25MG CAP PO SCH ×2 (08:15→20:31)
[2020-09-29] MEDS: AMLODIPINE 10 MG TAB PO SCH (08:15)
[2020-09-29] MEDS: SENNA/DOCUSATE TABLET PO SCH (08:16)
[2020-09-29 12:00] VITALS: BP 120/77
[2020-09-29 19:32] VITALS: BP 120/83
[2020-09-30 01:10] VITALS: BP 104/69
[2020-09-30] MEDS: HEPARIN 5,000 UNITS/ML, 1ML SQ SCH ×2 (05:37→13:05)
[2020-09-30] MEDS: LEVOTHYROXINE 50 MCG TABLET PO SCH (05:37)
[2020-09-30 06:33] LABS: ANION GAP 5 mmol/L (5-15); CALCIUM 9.8 mg/dL (8.5-10.1); CHLORIDE 109 mmol/L (98-107); CREATININE 1.45 mg/dL (0.55-1.02)
[2020-09-30 07:54] VITALS: BP 127/81
[2020-09-30] MEDS ORDERED: OXYcodone IR 5MG TABLET PO PRN (08:00)
[2020-09-30] MEDS: SENNA/DOCUSATE TABLET PO SCH (09:00)
[2020-09-30] MEDS: FLUTICASONE/VILANTEROL 200-25MCG/INH INH SCH (09:34)
[2020-09-30] MEDS: AMLODIPINE 10 MG TAB PO SCH (09:35)
[2020-09-30] MEDS: FLUOXETINE HCL 20 MG CAPSULE PO SCH (09:35)
[2020-09-30] MEDS: QUETIAPINE 200 MG TABLET PO SCH ×2 (09:35→20:18)
[2020-09-30] MEDS: HYDROXYZINE PAMOATE 25MG CAP PO SCH ×2 (09:35→20:18)
[2020-09-30] MEDS: CALCIUM CARBONATE 500 MG TAB.CHEW PO PRN ×2 (09:42→16:47)
[2020-09-30 12:53] VITALS: BP 130/75
[2020-09-30 19:16] VITALS: BP 120/69
[2020-10-01 00:17] VITALS: BP 111/65
[2020-10-01 05:20] LABS: CALCIUM 9.2 mg/dL (8.5-10.1); CHLORIDE 109 mmol/L (98-107)
[2020-10-01 05:23] LABS: ANION GAP 6 mmol/L (5-15); CREATININE 1.85 mg/dL (0.55-1.02)
[2020-10-01] MEDS: LEVOTHYROXINE 50 MCG TABLET PO SCH (05:48)
[2020-10-01] MEDS: ASPIRIN 81 MG TABLET EC PO SCH (05:48)
[2020-10-01 07:34] VITALS: BP 154/82
[2020-10-01] MEDS ORDERED: SENNA/DOCUSATE TABLET PO PRN (08:00)
[2020-10-01] MEDS: CALCIUM CARBONATE 500 MG TAB.CHEW PO PRN (08:49)
[2020-10-01] MEDS: HYDROXYZINE PAMOATE 25MG CAP PO SCH ×2 (08:50→20:41)
[2020-10-01] MEDS: QUETIAPINE 200 MG TABLET PO SCH ×2 (08:51→20:41)
[2020-10-01] MEDS: AMLODIPINE 10 MG TAB PO SCH (08:51)
[2020-10-01] MEDS: LACTOBACILLUS CHEW TABLET PO SCH ×3 (08:51→20:40)
[2020-10-01] MEDS: FLUOXETINE HCL 20 MG CAPSULE PO SCH (08:52)
[2020-10-01] MEDS: FLUTICASONE/VILANTEROL 200-25MCG/INH INH SCH (09:00)
[2020-10-01] MEDS: SODIUM CHLORIDE 0.9% 1,000 ML IV SCH (11:02)
[2020-10-01 14:30] VITALS: BP 101/64
[2020-10-01] MEDS ORDERED: SODIUM POLYSTYRENE SULFONATE ORAL SUSP PO ONE (16:30)
[2020-10-01] MEDS ORDERED: ONDANSETRON 4 MG TABLET PO PRN (18:00)
[2020-10-01] MEDS: ONDANSETRON 2MG/ML, 2ML IVPush PRN (18:08)
[2020-10-01 18:45] VITALS: BP 120/79
[2020-10-02 00:12] VITALS: BP 154/81
[2020-10-02] MEDS: SODIUM CHLORIDE 0.9% 1,000 ML IV SCH (02:05)
[2020-10-02 05:33] LABS: BASOPHILS % (AUTO) 2 % (0-1); EOSINOPHILS % (AUTO) 5 % (1-7); LYMPHOCYTES % (AUTO) 42 % (22-44); MEAN CORPUSCULAR HEMOGLOBIN 28.2 pg (27.0-34.8); MEAN CORPUSCULAR HGB CONC 32.5 g/dL (32.4-35.8); MEAN PLATELET VOLUME 7.3 fL (7.4-10.4); MONOCYTES % (AUTO) 9 % (2-9); NEUTROPHILS % (AUTO) 43 % (42-75); PLATELET COUNT 232 x10^3/uL (130-400); RED CELL DISTRIBUTION WIDTH 15.4 % (9.6-15.2)
[2020-10-02 05:39] LABS: ANION GAP 4 mmol/L (5-15); CALCIUM 9.1 mg/dL (8.5-10.1); CHLORIDE 110 mmol/L (98-107); CREATININE 1.47 mg/dL (0.55-1.02)
[2020-10-02] MEDS: ASPIRIN 81 MG TABLET EC PO SCH (05:44)
[2020-10-02] MEDS: LEVOTHYROXINE 50 MCG TABLET PO SCH (05:44)
[2020-10-02] MEDS: ONDANSETRON 2MG/ML, 2ML IVPush PRN (07:51)
[2020-10-02 07:53] VITALS: BP 108/72
[2020-10-02] MEDS: FLUTICASONE/VILANTEROL 200-25MCG/INH INH SCH (09:00)
[2020-10-02] MEDS: LACTOBACILLUS CHEW TABLET PO SCH ×3 (10:27→20:51)
[2020-10-02] MEDS: AMLODIPINE 10 MG TAB PO SCH (10:27)
[2020-10-02] MEDS: QUETIAPINE 200 MG TABLET PO SCH ×2 (10:27→20:51)
[2020-10-02] MEDS: FLUOXETINE HCL 20 MG CAPSULE PO SCH (10:27)
[2020-10-02] MEDS: HYDROXYZINE PAMOATE 25MG CAP PO SCH ×2 (10:27→20:51)
[2020-10-02 12:39] VITALS: BP 120/80
[2020-10-02 21:08] VITALS: BP 132/87
[2020-10-03 00:44] VITALS: BP 104/64
[2020-10-03] MEDS: SODIUM CHLORIDE 0.9% 1,000 ML IV SCH ×2 (03:09→08:17)
[2020-10-03 05:06] LABS: ANION GAP 5 mmol/L (5-15); CALCIUM 8.3 mg/dL (8.5-10.1); CHLORIDE 112 mmol/L (98-107)
[2020-10-03 05:07] LABS: CREATININE 1.42 mg/dL (0.55-1.02)
[2020-10-03 06:46] VITALS: BP 117/63
[2020-10-03] MEDS: ASPIRIN 81 MG TABLET EC PO SCH (07:10)
[2020-10-03] MEDS: LEVOTHYROXINE 50 MCG TABLET PO SCH (07:11)
[2020-10-03] MEDS: ACETAMINOPHEN 325 MG TABLET PO PRN ×2 (08:17→19:43)
[2020-10-03] MEDS: FLUOXETINE HCL 20 MG CAPSULE PO SCH (08:17)
[2020-10-03] MEDS: AMLODIPINE 10 MG TAB PO SCH (08:17)
[2020-10-03] MEDS: FLUTICASONE/VILANTEROL 200-25MCG/INH INH SCH (08:17)
[2020-10-03] MEDS: QUETIAPINE 200 MG TABLET PO SCH ×2 (08:18→19:43)
[2020-10-03] MEDS: LACTOBACILLUS CHEW TABLET PO SCH ×3 (08:18→19:43)
[2020-10-03] MEDS: HYDROCHLOROTHIAZIDE 12.5 MG CAPSULE PO SCH (08:18)
[2020-10-03] MEDS: HYDROXYZINE PAMOATE 25MG CAP PO SCH ×2 (08:19→19:44)
[2020-10-03 12:19] VITALS: BP 108/56
[2020-10-03 19:36] VITALS: BP 161/76
[2020-10-04] MEDS: SODIUM CHLORIDE 0.9% 1,000 ML IV SCH (00:41)
[2020-10-04 01:22] VITALS: BP 122/75
[2020-10-04] MEDS: LEVOTHYROXINE 50 MCG TABLET PO SCH (06:01)
[2020-10-04] MEDS: ASPIRIN 81 MG TABLET EC PO SCH (06:01)
[2020-10-04 07:54] VITALS: BP 157/84
[2020-10-04] MEDS: AMLODIPINE 10 MG TAB PO SCH (08:37)
[2020-10-04] MEDS: FLUOXETINE HCL 20 MG CAPSULE PO SCH (08:37)
[2020-10-04] MEDS: QUETIAPINE 200 MG TABLET PO SCH ×2 (08:37→20:50)
[2020-10-04] MEDS: HYDROCHLOROTHIAZIDE 12.5 MG CAPSULE PO SCH (08:38)
[2020-10-04] MEDS: LACTOBACILLUS CHEW TABLET PO SCH ×3 (08:38→20:50)
[2020-10-04] MEDS: HYDROXYZINE PAMOATE 25MG CAP PO SCH ×2 (08:38→16:48)
[2020-10-04] MEDS: FLUTICASONE/VILANTEROL 200-25MCG/INH INH SCH (09:00)
[2020-10-04 13:25] VITALS: BP 94/64
[2020-10-04 19:51] VITALS: BP 148/75
[2020-10-05 00:17] VITALS: BP 106/69
[2020-10-05] MEDS: ASPIRIN 81 MG TABLET EC PO SCH (06:05)
[2020-10-05] MEDS: LEVOTHYROXINE 50 MCG TABLET PO SCH (06:05)
[2020-10-05 08:13] VITALS: BP 147/80
[2020-10-05] MEDS: AMLODIPINE 10 MG TAB PO SCH (08:40)
[2020-10-05] MEDS: FLUOXETINE HCL 20 MG CAPSULE PO SCH (08:40)
[2020-10-05] MEDS: QUETIAPINE 200 MG TABLET PO SCH ×2 (08:40→20:17)
[2020-10-05] MEDS: LACTOBACILLUS CHEW TABLET PO SCH ×3 (08:40→20:17)
[2020-10-05] MEDS: HYDROCHLOROTHIAZIDE 12.5 MG CAPSULE PO SCH (08:40)
[2020-10-05] MEDS: FLUTICASONE/VILANTEROL 200-25MCG/INH INH SCH (08:41)
[2020-10-05] MEDS: HYDROXYZINE PAMOATE 25MG CAP PO SCH ×2 (08:45→17:00)
[2020-10-05 12:31] VITALS: BP 130/62
[2020-10-05] MEDS: ACETAMINOPHEN 325 MG TABLET PO PRN (17:06)
[2020-10-06] MEDS: LEVOTHYROXINE 50 MCG TABLET PO SCH (05:45)
[2020-10-06] MEDS: ASPIRIN 81 MG TABLET EC PO SCH (05:45)
[2020-10-06] MEDS: FLUTICASONE/VILANTEROL 200-25MCG/INH INH SCH (08:27)
[2020-10-06] MEDS: FLUOXETINE HCL 20 MG CAPSULE PO SCH (08:28)
[2020-10-06] MEDS: LACTOBACILLUS CHEW TABLET PO SCH ×3 (08:28→19:26)
[2020-10-06] MEDS: QUETIAPINE 200 MG TABLET PO SCH ×2 (08:28→19:26)
[2020-10-06] MEDS: AMLODIPINE 10 MG TAB PO SCH (08:29)
[2020-10-06] MEDS: HYDROXYZINE PAMOATE 25MG CAP PO SCH ×2 (08:29→19:26)
[2020-10-06 08:31] VITALS: BP 146/71
[2020-10-06 12:38] VITALS: BP 118/67
[2020-10-06] MEDS: HALOPERIDOL 2 MG TABLET PO PRN (17:36)
[2020-10-06 19:27] VITALS: BP 169/82
[2020-10-06] MEDS ORDERED: OMNIPAQUE 350 MG/ML, 100ML BOTTLE ONE (22:57)
[2020-10-07 00:14] VITALS: BP 132/66
[2020-10-07] MEDS: HALOPERIDOL 2 MG TABLET PO PRN ×3 (01:45→21:09)
[2020-10-07] MEDS: CALCIUM CARBONATE 500 MG TAB.CHEW PO PRN (01:47)
[2020-10-07] MEDS: ASPIRIN 81 MG TABLET EC PO SCH (05:56)
[2020-10-07] MEDS: LEVOTHYROXINE 50 MCG TABLET PO SCH (05:56)
[2020-10-07 06:04] LABS: BASOPHILS % (AUTO) 1 % (0-1); EOSINOPHILS % (AUTO) 5 % (1-7); LYMPHOCYTES % (AUTO) 37 % (22-44); MEAN CORPUSCULAR HEMOGLOBIN 28.6 pg (27.0-34.8); MEAN CORPUSCULAR HGB CONC 33.1 g/dL (32.4-35.8); MEAN PLATELET VOLUME 7.1 fL (7.4-10.4); MONOCYTES % (AUTO) 8 % (2-9); NEUTROPHILS % (AUTO) 49 % (42-75); PLATELET COUNT 272 x10^3/uL (130-400); RED BLOOD COUNT 4.52 x10^6/uL (3.82-5.3); RED CELL DISTRIBUTION WIDTH 15.4 % (9.6-15.2)
[2020-10-07 06:22] LABS: CALCIUM 9.4 mg/dL (8.5-10.1); CHLORIDE 108 mmol/L (98-107)
[2020-10-07 06:26] LABS: ANION GAP 6 mmol/L (5-15); CREATININE 1.64 mg/dL (0.55-1.02)
[2020-10-07] MEDS: QUETIAPINE 200 MG TABLET PO SCH ×2 (08:40→20:05)
[2020-10-07] MEDS: HYDROXYZINE PAMOATE 25MG CAP PO SCH ×2 (08:40→20:05)
[2020-10-07] MEDS: FLUTICASONE/VILANTEROL 200-25MCG/INH INH SCH (08:40)
[2020-10-07] MEDS: LACTOBACILLUS CHEW TABLET PO SCH ×3 (08:41→20:06)
[2020-10-07] MEDS: HYDROCHLOROTHIAZIDE 12.5 MG CAPSULE PO SCH (08:41)
[2020-10-07] MEDS: FLUOXETINE HCL 20 MG CAPSULE PO SCH (08:41)
[2020-10-07] MEDS: AMLODIPINE 10 MG TAB PO SCH (08:41)
[2020-10-07 08:47] VITALS: BP 135/65
[2020-10-07] MEDS: DOCUSATE 100 MG CAPSULE PO SCH ×2 (10:40→20:06)
[2020-10-07 14:25] VITALS: BP 110/65
[2020-10-07] MEDS: ACETAMINOPHEN 325 MG TABLET PO PRN (14:25)
[2020-10-07 20:47] VITALS: BP 137/66
[2020-10-08 01:28] VITALS: BP 135/72
[2020-10-08] MEDS: ASPIRIN 81 MG TABLET EC PO SCH (06:05)
[2020-10-08] MEDS: LEVOTHYROXINE 50 MCG TABLET PO SCH (06:05)
[2020-10-08 06:40] LABS: CHLORIDE 108 mmol/L (98-107)
[2020-10-08 06:46] LABS: ANION GAP 8 mmol/L (5-15); CALCIUM 8.9 mg/dL (8.5-10.1); CREATININE 1.51 mg/dL (0.55-1.02)
[2020-10-08 07:35] VITALS: BP 148/78
[2020-10-08] MEDS: HYDROXYZINE PAMOATE 25MG CAP PO SCH ×2 (08:38→19:59)
[2020-10-08] MEDS: FLUOXETINE HCL 20 MG CAPSULE PO SCH (08:38)
[2020-10-08] MEDS: LACTOBACILLUS CHEW TABLET PO SCH ×3 (08:38→19:59)
[2020-10-08] MEDS: QUETIAPINE 200 MG TABLET PO SCH ×2 (08:39→20:00)
[2020-10-08] MEDS: DOCUSATE 100 MG CAPSULE PO SCH ×3 (08:39→20:00)
[2020-10-08] MEDS: AMLODIPINE 10 MG TAB PO SCH (08:39)
[2020-10-08] MEDS: FLUTICASONE/VILANTEROL 200-25MCG/INH INH SCH (09:08)
[2020-10-08 14:01] VITALS: BP 127/73
[2020-10-08] MEDS: HALOPERIDOL 2 MG TABLET PO PRN (14:05)
[2020-10-08 19:18] VITALS: BP 146/83
[2020-10-09 01:24] VITALS: BP 106/60
[2020-10-09] MEDS: ASPIRIN 81 MG TABLET EC PO SCH (06:03)
[2020-10-09] MEDS: LEVOTHYROXINE 50 MCG TABLET PO SCH (06:03)
[2020-10-09 07:46] VITALS: BP 144/78
[2020-10-09] MEDS: HYDROXYZINE PAMOATE 25MG CAP PO SCH ×2 (07:49→20:45)
[2020-10-09] MEDS: LACTOBACILLUS CHEW TABLET PO SCH ×3 (07:49→20:46)
[2020-10-09] MEDS: DOCUSATE 100 MG CAPSULE PO SCH ×2 (07:50→20:47)
[2020-10-09] MEDS: HYDROCHLOROTHIAZIDE 12.5 MG CAPSULE PO SCH (07:50)
[2020-10-09] MEDS: QUETIAPINE 200 MG TABLET PO SCH ×2 (07:50→20:46)
[2020-10-09] MEDS: FLUOXETINE HCL 20 MG CAPSULE PO SCH (07:50)
[2020-10-09] MEDS: FLUTICASONE/VILANTEROL 200-25MCG/INH INH SCH (07:50)
[2020-10-09] MEDS: AMLODIPINE 10 MG TAB PO SCH (07:50)
[2020-10-09] MEDS: HALOPERIDOL 2 MG TABLET PO PRN ×2 (13:33→20:55)
[2020-10-09 13:38] VITALS: BP 147/80
[2020-10-09 19:17] VITALS: BP 124/86
[2020-10-09] MEDS: MELATONIN 5 MG TABLET PO PRN (23:22)
[2020-10-10 00:30] VITALS: BP 108/69
[2020-10-10] MEDS: LEVOTHYROXINE 25 MCG TABLET PO SCH ×2 (02:32→08:30)
[2020-10-10] MEDS: ASPIRIN 81 MG TABLET EC PO SCH (05:14)
[2020-10-10] MEDS: LEVOTHYROXINE 50 MCG TABLET PO SCH (05:14)
[2020-10-10] MEDS: DOCUSATE 100 MG CAPSULE PO SCH ×2 (08:26→20:21)
[2020-10-10] MEDS: QUETIAPINE 200 MG TABLET PO SCH ×2 (08:27→20:22)
[2020-10-10] MEDS: FLUOXETINE HCL 20 MG CAPSULE PO SCH (08:28)
[2020-10-10] MEDS: HYDROXYZINE PAMOATE 25MG CAP PO SCH ×2 (08:28→20:25)
[2020-10-10] MEDS: LACTOBACILLUS CHEW TABLET PO SCH ×3 (08:28→20:21)
[2020-10-10] MEDS: AMLODIPINE 10 MG TAB PO SCH (08:28)
[2020-10-10 08:39] VITALS: BP 142/62
[2020-10-10] MEDS: FLUTICASONE/VILANTEROL 200-25MCG/INH INH SCH (09:00)
[2020-10-10] MEDS: HALOPERIDOL 2 MG TABLET PO PRN ×2 (13:16→23:59)
[2020-10-10] MEDS: CALCIUM CARBONATE 500 MG TAB.CHEW PO PRN ×2 (13:20→20:36)
[2020-10-10 13:25] VITALS: BP 120/60
[2020-10-10] MEDS: MELATONIN 5 MG TABLET PO PRN (20:22)
[2020-10-10 20:38] VITALS: BP 133/71
[2020-10-11] VITALS: BP 138/79
[2020-10-11] MEDS: ASPIRIN 81 MG TABLET EC PO SCH (06:16)
[2020-10-11] MEDS: LEVOTHYROXINE 50 MCG TABLET PO SCH (06:16)
[2020-10-11] MEDS: LEVOTHYROXINE 25 MCG TABLET PO SCH (06:16)
[2020-10-11] MEDS: HALOPERIDOL 2 MG TABLET PO PRN ×2 (06:24→12:39)
[2020-10-11] MEDS: QUETIAPINE 200 MG TABLET PO SCH ×2 (08:21→20:09)
[2020-10-11] MEDS: FLUOXETINE HCL 20 MG CAPSULE PO SCH (08:21)
[2020-10-11] MEDS: HYDROXYZINE PAMOATE 25MG CAP PO SCH ×2 (08:21→20:09)
[2020-10-11] MEDS: FLUTICASONE/VILANTEROL 200-25MCG/INH INH SCH (08:21)
[2020-10-11] MEDS: HYDROCHLOROTHIAZIDE 12.5 MG CAPSULE PO SCH (08:21)
[2020-10-11] MEDS: LACTOBACILLUS CHEW TABLET PO SCH ×3 (08:21→20:09)
[2020-10-11] MEDS: AMLODIPINE 10 MG TAB PO SCH (08:21)
[2020-10-11] MEDS: DOCUSATE 100 MG CAPSULE PO SCH ×2 (08:22→20:09)
[2020-10-11 08:26] VITALS: BP 154/85
[2020-10-11] MEDS: CALCIUM CARBONATE 500 MG TAB.CHEW PO PRN (12:38)
[2020-10-11 13:29] VITALS: BP 148/84
[2020-10-11] MEDS: MAALOX/HYOSCYAMINE/LIDOCAINE 45 ML BTL PO SCH ×2 (18:11→20:09)
[2020-10-11 19:00] VITALS: BP 142/65
[2020-10-11] MEDS: MELATONIN 5 MG TABLET PO PRN (20:09)
[2020-10-12 00:17] VITALS: BP 108/62
[2020-10-12] MEDS: HALOPERIDOL 2 MG TABLET PO PRN ×2 (01:09→14:37)
[2020-10-12] MEDS: CALCIUM CARBONATE 500 MG TAB.CHEW PO PRN ×3 (01:09→12:44)
[2020-10-12] MEDS: MAALOX/HYOSCYAMINE/LIDOCAINE 45 ML BTL PO SCH ×2 (05:50→17:15)
[2020-10-12] MEDS: ASPIRIN 81 MG TABLET EC PO SCH (05:50)
[2020-10-12] MEDS: LEVOTHYROXINE 50 MCG TABLET PO SCH (05:51)
[2020-10-12] MEDS: LEVOTHYROXINE 25 MCG TABLET PO SCH (05:52)
[2020-10-12] MEDS: DOCUSATE 100 MG CAPSULE PO SCH (07:43)
[2020-10-12] MEDS: AMLODIPINE 10 MG TAB PO SCH (07:43)
[2020-10-12] MEDS: LACTOBACILLUS CHEW TABLET PO SCH ×2 (07:43→17:12)
[2020-10-12] MEDS: QUETIAPINE 200 MG TABLET PO SCH (07:43)
[2020-10-12] MEDS: HYDROXYZINE PAMOATE 25MG CAP PO SCH (07:44)
[2020-10-12] MEDS: FLUOXETINE HCL 20 MG CAPSULE PO SCH (07:44)
[2020-10-12 08:07] VITALS: BP 155/76
[2020-10-12] MEDS ORDERED: BUDESONIDE 0.5 MG/2 ML INHA NPPB SCH (09:00)
[2020-10-12] MEDS: ALBUTEROL SULFATE 2.5 MG/3 ML NPPB SCH ×2 (11:00→15:00)
[2020-10-12 15:59] VITALS: BP 171/90
[2020-10-12] MEDS ORDERED: BUDE0.5A NPPB (16:40)
[2020-10-12] MEDS ORDERED: CLON-364 PO (16:40)
[2020-10-12] MEDS ORDERED: ASPI81TA45 PO (16:40)
[2020-10-12] MEDS ORDERED: HYDR12.517 PO (16:40)
[2020-10-12] MEDS ORDERED: Maalox/Hyoscyamine/Lidocaine PO (16:40)
[2020-10-12] MEDS ORDERED: LEVO50TA PO (16:40)
[2020-10-12] MEDS ORDERED: [UNRECOGNIZED DRUG - CODE] PO (16:43)
== END 2020-10-12 19:57 | disposition home or self-care (01) | DRG 872 ==
LOC: ED 11:17 → EDIP 16:12 → 3N 17:50
PROVIDERS: ADMIT Internal Medicine; ATTEND Hospitalist
DX: A41.9 Sepsis, unspecified organism (principal); N39.0 Urinary tract infection, site not specified; R62.7 Adult failure to thrive; I12.9 Hypertensive chronic kidney disease with stage 1 through stage 4 chronic kidney disease, or unspecified chronic kidney disease; J44.9 Chronic obstructive pulmonary disease, unspecified; Z99.81 Dependence on supplemental oxygen; B19.20 Unspecified viral hepatitis C without hepatic coma; C67.9 Malignant neoplasm of bladder, unspecified; N18.30 Chronic kidney disease, stage 3 unspecified; K59.00 Constipation, unspecified; K57.90 Diverticulosis of intestine, part unspecified, without perforation or abscess without bleeding; F41.9 Anxiety disorder, unspecified; F32.9 Major depressive disorder, single episode, unspecified; F12.10 Cannabis abuse, uncomplicated; E87.5 Hyperkalemia; E83.51 Hypocalcemia; E03.9 Hypothyroidism, unspecified; E86.0 Dehydration; E66.9 Obesity, unspecified; E83.42 Hypomagnesemia; Z85.51 Personal history of malignant neoplasm of bladder; Z87.891 Personal history of nicotine dependence; Z90.5 Acquired absence of kidney; Z90.710 Acquired absence of both cervix and uterus; Z90.49 Acquired absence of other specified parts of digestive tract; Z68.30 Body mass index [BMI] 30.0-30.9, adult
CPT/HCPCS: 36415; 74018; 74176; 80048; 81001; 82040; 82330; 83735; 84439; 84443; 85025; 86480; 87086; 93005; 94640; G0378; J0696; J1644; J2405; J3475; J7613; J7626; Q9967; U0005; J7030; U0003

== ENCOUNTER 2020-10-31 10:09 | Emergency (ER) | payer OTHER ==
[~2020-10-31] VITALS: Ht 157.5 cm; Wt 77.8 kg
[~2020-10-31 10:09] MED LIST changes: +ASPI81TA45 PO; +BUDE0.5A NPPB; +CLON-364 PO; +HYDR12.517 PO; +LEVO25TA2 PO; +LEVO50TA PO; +Maalox/Hyoscyamine/Lidocaine PO; -QUET100T PO; +QUET100T2 PO; +SENN-211 PO; +[UNRECOGNIZED DRUG - CODE] PO
--- NOTE | 2020-10-31 11:20 | NUR ---
CHARGE R: TP TO ROOM FROM BYRON AGUILAR
[2020-10-31] MEDS ORDERED: MAALOX/HYOSCYAMINE/LIDOCAINE 45 ML BTL PO ONE (13:00)
[2020-10-31 13:09] VITALS: BP 108/65
[2020-10-31] MEDS ORDERED: MAALOX/HYOSCYAMINE/LIDOCAINE 45 ML BTL ONE (13:26)
== END 2020-10-31 13:35 | disposition home or self-care (01) ==
LOC: ED 10:34
DX: L03.031 Cellulitis of right toe (principal); L03.012 Cellulitis of left finger; L03.032 Cellulitis of left toe; L01.01 Non-bullous impetigo; I10 Essential (primary) hypertension; J44.9 Chronic obstructive pulmonary disease, unspecified; F17.200 Nicotine dependence, unspecified, uncomplicated; E66.9 Obesity, unspecified; Z68.31 Body mass index [BMI] 31.0-31.9, adult; Z90.49 Acquired absence of other specified parts of digestive tract
CPT/HCPCS: 93005; 99283